=== PATIENT | male | born 1945 | race Caucasian/White ===

== ENCOUNTER → 2017-02-21 | Outpatient (CLI) | payer MEDICARE ==
[~2017-02-21] MED LIST: ACTO30TA7 PO; ALBU8I INH; ISTA0.5S; LEVEMIR SQ; LISI-360 PO; PLAV75TA PO; SIMV20 PO; SYNT25TA PO; TRIA.1%T TOP
== END ==
LOC: CLAB 12:36
PROVIDERS: ATTEND Internal Medicine Endocrinology, Diabetes & Metabolism
DX: E87.5 Hyperkalemia (principal)
CPT/HCPCS: 36415; 84132

== ENCOUNTER → 2017-04-29 | Outpatient (CLI) | payer MEDICARE ==
--- NOTE | 2017-04-30 09:36 | RSPPFT ---
DATE OF PROCEDURE: 04/29/17 COMMENTS: Spirometry shows FVC of 1.9 predicted 3.7, FEV1 of 1.3 predicted 2.4. Post-bronchodilator FVC increases to 2.2. Lung volumes could not be measured. IMPRESSION: On the basis of the above, patient has an obstructive lung defect based on the flow volume loop and some reversible component is noted following acutely inhaled bronchodilator.
== END ==
LOC: HRSP 09:25
PROVIDERS: ATTEND Internal Medicine Pulmonary Disease
DX: J44.9 Chronic obstructive pulmonary disease, unspecified (principal)
CPT/HCPCS: 94060; 94726; 94729

== ENCOUNTER 2018-01-28 20:32 | Inpatient (IN) | payer MEDICARE ==
[~2018-01-28] VITALS: Ht 165.1 cm; Wt 70.0 kg
[~2018-01-28 20:32] MED LIST changes: +IODIXANOL 320 MG/ML 10 ML VIAL (for Rad CT) IVCONTRAST ONE
[2018-01-28 20:42] VITALS: BP 201/80; PULSE 55; RESP 30; TEMP 97.4; O2SAT 95
--- NOTE | 2018-01-28 20:58 | PD ---
HPI Chief Complaint: Chest Pain Time Seen by Provider: 20:47 Travel History International Travel<30 days: No Contact w/Intl Traveler<30days: No Traveled to known affect area: No History of Present Illness HPI 72-year-old male with history of 5 vessel bypass, coronary artery disease, [address], presents for evaluation of abdominal pain, chest pain, nausea and vomiting. He reports that 2 PM today he ate [employer] fast food. 2 hours later he developed abdominal pain, nausea and vomiting. Since then the pain is migrating into his chest. He describes it as a aching pain in his mid chest region which does not radiate. Endorses associated dyspnea. He has persistent nausea as well. Denies cough, congestion, dysuria, flank pain, objective fevers. He has no other complaints at this time. PFSH Past Medical History Arthritis: Yes (SHOULDERS) Asthma: No Blood Disorders: No Heart Rhythm Problems: No Cancer: No Cardiovascular Problems: Yes High Cholesterol: Yes (ON MEDS) Chemotherapy: No Chest Pain: Yes Congestive Heart Failure: No COPD: Yes (RECENTLY) Cerebrovascular Accident: Yes (TIA 10/15/2010) Diabetes: Yes (1990) Diminished Hearing: No Endocrine: Yes Gastrointestinal Disorders: Yes (IBS) GERD: No Genitourinary: No Headaches: No Hepatitis: No Hiatal Hernia: No Hypertension: Yes Immune Disorder: No Implanted Vascular Access Dvce: Yes Musculoskeletal: Yes Neurologic: No Psychiatric: No Reproductive: No Respiratory: Yes Migraines: No Myocardial Infarction: No Radiation Therapy: No Seizures: No Sleep Apnea: Yes Ulcer: No Past Surgical History Abdominal Surgery: No AICD: No Appendectomy: No Arteriovenous Shunt: Yes (STENT ) Cardiac Surgery: Yes (5 VESSEL BIPASS AUG 2007,STENT 2007) Cholecystectomy: No Ear Surgery: No Endocrine Surgery: No Eye Surgery: No Genitourinary Surgery: No Gynecologic Surgery: No Insulin Pump: No Joint Replacement: No Neurologic Surgery: Yes Oral Surgery: No Pacemaker: No Thoracic Surgery: Yes Tonsillectomy: Yes Other Surgery: Yes (RIGHT ELBOW ORIF 1984;FEMORAL BYPASS) Social History Alcohol Use: Yes (QUIT 4 MONTHS AGO) Tobacco Use: No Substance Use: No Allergies-Medications (Allergen,Severity, Reaction): Coded Allergies: No Known Allergies (Verified Adverse Reaction, Unknown, 01/28/18) Reported Meds & Prescriptions Reported Meds & Active Scripts Active Reported Levemir Inj (Insulin Detemir) 1,000 unit/ 10 ML Vial 25 Units SQ HS Do not mix with any other Insulin. Plavix (Clopidogrel Bisulfate) 75 Mg Tab 75 Mg PO DAILY Amlodipine (Amlodipine Besylate) 10 Mg Tab 10 Mg PO DAILY Glimepiride 4 Mg Tab 4 Mg PO BIDAC Simvastatin 40 Mg Tab 40 Mg PO HS Metformin ER (Metformin HCl) 500 Mg Thelma 500 Mg PO DAILY With evening meal Metformin ER (Metformin HCl) 1,000 Mg Thelma 1,000 Mg PO DAILY With evening meal Levothyroxine (Levothyroxine Sodium) 50 Mcg Tab 50 Mcg PO DAILY Review of Systems Except as stated in HPI: all other systems reviewed are Neg Physical Exam Narrative GENERAL: Well-nourished male in no acute distress, hypertensive. SKIN: Warm and dry. HEAD: Atraumatic. Normocephalic. EYES: Pupils equal and round. No scleral icterus. No injection or drainage. ENT: No nasal bleeding or discharge. Mucous membranes pink and moist. NECK: Trachea midline. No JVD. CARDIOVASCULAR: Regular rate and rhythm. No murmur appreciated. RESPIRATORY: No accessory muscle use. Clear to auscultation. Breath sounds equal bilaterally. GASTROINTESTINAL: Abdomen soft, some tenderness noted in the epigastrium without guarding. MUSCULOSKELETAL: No obvious deformities. No clubbing. No cyanosis. No edema. NEUROLOGICAL: Awake and alert. No obvious cranial nerve deficits. Motor grossly within normal limits. Normal speech. PSYCHIATRIC: Appropriate mood and affect; insight and judgment normal. Data Data Last Documented VS Vital Signs Date Time Temp Pulse Resp B/P (MAP) Pulse Ox O2 Delivery O2 Flow Rate FiO2 01/28/18 22:13 20 01/28/18 21:05 Nasal Cannula 2.00 01/28/18 21:05 201/80 (120) 173/71 (105) 01/28/18 20:59 96 01/28/18 20:42 97.4 55 Orders Orders Electrocardiogram (01/28/18 20:48) Ckmb (Isoenzyme) Profile (01/28/18 20:48) Complete Blood Count With Diff (01/28/18 20:48) Comprehensive Metabolic Panel (01/28/18 20:48) Magnesium (Mg) (01/28/18 20:48) Prothrombin Time / Inr (Pt) (01/28/18 20:48) Act Partial Throm Time (Ptt) (01/28/18 20:48) Troponin I (01/28/18 20:48) Chest, Single Ap (01/28/18 20:48) Ecg Monitoring (01/28/18 20:48) Bilateral Bp Monitoring (01/28/18 20:48) Iv Access Insert/Monitor (01/28/18 20:48) Oximetry (01/28/18 20:48) Oxygen Administration (01/28/18 20:48) Sodium Chloride 0.9% Flush (Ns Flush) (01/28/18 21:00) Nitroglycerin Sl (Nitrostat Sl) (01/28/18 21:00) Ondansetron Inj (Zofran Inj) (01/28/18 21:00) Lipase (01/28/18 20:48) Morphine Inj (Morphine Inj) (01/28/18 22:15) Metoclopramide Inj (Reglan Inj) (01/28/18 22:15) Sodium Chlor 0.9% 1000 Ml Inj (Ns 1000 M (01/28/18 22:19) Magnesium Sulfate 1 Gm Premix (Magnesium (01/28/18 22:30) Pantoprazole Inj (Protonix Inj) (01/28/18 22:45) Us Abdomen Gallbladder (01/28/18 ) Labs Laboratory Tests Test 01/28/18 21:00 White Blood Count 11.1 TH/MM3 Red Blood Count 4.77 MIL/MM3 Hemoglobin 13.0 GM/DL Hematocrit 38.6 % Mean Corpuscular Volume 80.9 FL Mean Corpuscular Hemoglobin 27.4 PG Mean Corpuscular Hemoglobin Concent 33.8 % Red Cell Distribution Width 16.5 % Platelet Count 171 TH/MM3 Mean Platelet Volume 9.0 FL Neutrophils (%) (Auto) 92.3 % Lymphocytes (%) (Auto) 4.2 % Monocytes (%) (Auto) 3.0 % Eosinophils (%) (Auto) 0.2 % Basophils (%) (Auto) 0.3 % Neutrophils # (Auto) 10.3 TH/MM3 Lymphocytes # (Auto) 0.5 TH/MM3 Monocytes # (Auto) 0.3 TH/MM3 Eosinophils # (Auto) 0.0 TH/MM3 Basophils # (Auto) 0.0 TH/MM3 CBC Comment DIFF FINAL Differential Comment Prothrombin Time 11.3 SEC Prothromb Time International Ratio 1.1 RATIO Activated Partial Thromboplast Time 21.9 SEC Blood Urea Nitrogen 20 MG/DL Creatinine 1.76 MG/DL Random Glucose 342 MG/DL Total Protein 8.1 GM/DL Albumin 4.1 GM/DL Calcium Level 9.2 MG/DL Magnesium Level 1.1 MG/DL Alkaline Phosphatase 100 U/L Aspartate Amino Transf (AST/SGOT) 171 U/L Alanine Aminotransferase (ALT/SGPT) 74 U/L Total Bilirubin 4.9 MG/DL Sodium Level 134 MEQ/L Potassium Level 4.5 MEQ/L Chloride Level 98 MEQ/L Carbon Dioxide Level 23.0 MEQ/L Anion Gap 13 MEQ/L Estimat Glomerular Filtration Rate 38 ML/MIN Total Creatine Kinase 75 U/L Troponin I LESS THAN 0.02 NG/ML Lipase 105 U/L MDM Medical Decision Making Medical Screen Exam Complete: Yes Emergency Medical Condition: Yes Medical Record Reviewed: Yes Interpretation(s) CONCLUSION: Mild bibasilar patchiness consistent with atelectasis and/or infiltrate. Mild cardiomegaly. CBC reveals a WBC count of 11.1 CMP reveals BUN 20, creatinine 1.76, GFR 38, total glucose 342, magnesium 1.1, bilirubin 4.9, AST 171 Lipase within normal limits. Troponin, CK within normal limits. Differential Diagnosis Gastric enteritis, food poisoning, pancreatitis, peptic ulcer disease, cholecystitis, angina, acute coronary syndrome, aortic dissection, hypertensive emergency Narrative Course The patient was placed on ECG monitor and pulse oximetry. Twelve-lead EKG was obtained revealing sinus rhythm, rate 53, right bundle branch block. The patient was given IV Zofran, sulfa and nitroglycerin with some improvement of his pain but pain remained at 5 out of 10 and therefore IV morphine has been ordered. Lab work, chest x-ray were ordered. The patient's blood pressure improved during his hospital stay. His lab work reveals a magnesium level I.1, IV magnesium as been ordered. He has an elevated bilirubin level of 4.9 as well as an AST of 171, epigastric and right upper quadrant tenderness on palpation, abdominal ultrasound has been ordered. 2300: At the end my shift the patient signed out pending right upper quadrant ultrasound imaging. Juan Pablo Vance Jan 28, 2018 20:58
[2018-01-28] MEDS ORDERED: SODIUM CHLORIDE 0.9% FLUSH 10 ML FLUSH IVF PRN (21:00)
[2018-01-28] MEDS ORDERED: ONDANSETRON HCL 4 MG/2 ML VIAL IV PUSH ONE (21:00)
[2018-01-28 21:05] VITALS: BP_SYST 173; BP_SYST 201; BP_DIAS 71; BP_DIAS 80
[2018-01-28] MEDS: NITROGLYCERIN 0.4 MG SL 25 TABS/BTL SL SCH ×3 (21:10→21:32)
[2018-01-28 21:27] LABS: AUTOMATED NEUTROPHIL # 10.3 TH/MM3 (1.8-7.7); BASOPHIL % 0.3 % (0.0-2.0); EOSINOPHIL % 0.2 % (0.0-4.0); HEMATOCRIT 38.6 % (39.0-51.0); LYMPH % 4.2 % (9.0-44.0); LYMPHOCYTE # 0.5 TH/MM3 (1.0-4.8); MEAN CELL VOLUME 80.9 FL (80.0-100.0); MEAN CORPUSCULAR HEMOGLOBIN 27.4 PG (27.0-34.0); MEAN CORPUSCULAR HGB CONC 33.8 % (32.0-36.0); MONOCYTE # 0.3 TH/MM3 (0-0.9); NEUT % 92.3 % (16.0-70.0); PLATELET COUNT 171 TH/MM3 (150-450); RED BLOOD COUNT 4.77 MIL/MM3 (4.50-5.90); RED CELL DISTRIBUTION WIDTH 16.5 % (11.6-17.2); WHITE BLOOD COUNT 11.1 TH/MM3 (4.0-11.0)
[2018-01-28] MEDS ORDERED: LEVO50TA4 PO (21:30)
[2018-01-28] MEDS ORDERED: GLIM4TAB PO (21:30)
[2018-01-28] MEDS ORDERED: PLAV75TA29 PO (21:30)
[2018-01-28] MEDS ORDERED: SIMV40TA PO (21:30)
[2018-01-28] MEDS ORDERED: METF500T4 PO (21:30)
[2018-01-28] MEDS ORDERED: AMLO10TA2 PO (21:30)
[2018-01-28] MEDS ORDERED: LEVEMIR SQ (21:30)
--- NOTE | 2018-01-28 21:32 | RADRPT ---
EXAM DATE/TIME: 01/28/2018 21:07 [facility] COMPARISON: No previous studies available for comparison. INDICATIONS : Chest pain. MEDICAL HISTORY : None. SURGICAL HISTORY : CABG. ENCOUNTER: Initial ACUITY: 1 day PAIN SCORE: 5/10 LOCATION: Bilateral chest FINDINGS: Mild bibasilar patchiness is noted consistent with atelectasis and/or infiltrate. The heart is mildly prominent. Median sternotomy wires are noted status post cardiac surgery. CONCLUSION: Mild bibasilar patchiness consistent with atelectasis and/or infiltrate. Mild cardiomegaly. Gucci Baldwin MD on January 28, 2018 at 21:30 Board Certified Radiologist. This report was verified electronically.
[2018-01-28 21:40] LABS: INTERNATIONAL NORMALIZED RATIO 1.1 RATIO; PROTHROMBIN TIME - PATIENT 11.3 SEC (9.8-11.6)
[2018-01-28 22:00] VITALS: BP 177/77; PULSE 50; RESP 20; O2SAT 95
[2018-01-28 22:13] LABS: ALBUMIN 4.1 GM/DL (3.4-5.0); ALT (GPT) 74 U/L (12-78); AST (GOT) 171 U/L (15-37); BLOOD UREA NITROGEN 20 MG/DL (7-18); CALCIUM 9.2 MG/DL (8.5-10.1); CHLORIDE 98 MEQ/L (98-107); CREATININE 1.76 MG/DL (0.60-1.30); GLOMERULAR FILTRATION RATE 38 ML/MIN (>89); GLUCOSE,RANDOM 342 MG/DL (74-106); MAGNESIUM 1.1 MG/DL (1.5-2.5); SODIUM (NA) 134 MEQ/L (136-145)
[2018-01-28] MEDS ORDERED: MORPHINE SULFATE 4 MG/ML INJ IV PUSH ONE (22:15)
[2018-01-28] MEDS ORDERED: METOCLOPRAMIDE HCL 10 MG/2 ML VIAL IV PUSH ONE (22:15)
[2018-01-28] MEDS ORDERED: SODIUM CHLOR 0.9% 1000 ML INJ 1,000 ML IV SCH (22:19)
[2018-01-28 22:22] LABS: ALKALINE PHOSPHATASE 100 U/L (45-117); TOTAL BILIRUBIN ADULT 4.9 MG/DL (0.2-1.0); TOTAL PROTEIN 8.1 GM/DL (6.4-8.2); TROPONIN I LESS THAN 0.02 NG/ML (0.02-0.05)
[2018-01-28] MEDS ORDERED: MAGNESIUM SULFATE 1 GM PREMIX 100 ML IV ONE (22:30)
[2018-01-28] MEDS ORDERED: PANTOPRAZOLE SODIUM 40 MG VIAL IV PUSH ONE (22:45)
[2018-01-28 23:00] VITALS: BP 158/72; PULSE 58; RESP 15; O2SAT 97
--- NOTE | 2018-01-28 23:07 | PD ---
Physical Exam Date Seen by Provider: Jan 28, 2018 Time Seen by Provider: 23:10 Janelle Ulrich 4.9 US ordered to rule out acute cholecystitis as the cause of his pain. Bedside US by tech large stone but not obstruction outflow and no wall thickenng or signs of cholecystitis, Pt to be admitted to Dr lazcano and BP elevation needs control > we ordered a CTAorta to rule out Thoracic Aorta dissection= negative for dissection , Data Data Last Documented VS Orders Orders Electrocardiogram (01/28/18 20:48) Ckmb (Isoenzyme) Profile (01/28/18 20:48) Complete Blood Count With Diff (01/28/18 20:48) Comprehensive Metabolic Panel (01/28/18 20:48) Magnesium (Mg) (01/28/18 20:48) Prothrombin Time / Inr (Pt) (01/28/18 20:48) Act Partial Throm Time (Ptt) (01/28/18 20:48) Troponin I (01/28/18 20:48) Chest, Single Ap (01/28/18 20:48) Ecg Monitoring (01/28/18 20:48) Bilateral Bp Monitoring (01/28/18 20:48) Iv Access Insert/Monitor (01/28/18 20:48) Oximetry (01/28/18 20:48) Oxygen Administration (01/28/18 20:48) Sodium Chloride 0.9% Flush (Ns Flush) (01/28/18 21:00) Nitroglycerin Sl (Nitrostat Sl) (01/28/18 21:00) Ondansetron Inj (Zofran Inj) (01/28/18 21:00) Lipase (01/28/18 20:48) Morphine Inj (Morphine Inj) (01/28/18 22:15) Metoclopramide Inj (Reglan Inj) (01/28/18 22:15) Sodium Chlor 0.9% 1000 Ml Inj (Ns 1000 M (01/28/18 22:19) Magnesium Sulfate 1 Gm Premix (Magnesium (01/28/18 22:30) Pantoprazole Inj (Protonix Inj) (01/28/18 22:45) Us Abdomen Gallbladder (01/28/18 ) Cta Thor Abd Aorta W Iv C W3d (01/29/18 ) Iodixanol 320 Inj (Rad Ct) (Visipaque 32 (01/28/18 02:00) Admit Order (Ed Use Only) (01/29/18 04:17) Vital Signs (Adult) CONNIE.Q4H (01/29/18 04:17) Activity Oob Ad Tierra (01/29/18 04:17) Acetaminophen (Tylenol) (01/29/18 04:30) Labs Laboratory Tests Test 01/28/18 21:00 White Blood Count 11.1 TH/MM3 Red Blood Count 4.77 MIL/MM3 Hemoglobin 13.0 GM/DL Hematocrit 38.6 % Mean Corpuscular Volume 80.9 FL Mean Corpuscular Hemoglobin 27.4 PG Mean Corpuscular Hemoglobin Concent 33.8 % Red Cell Distribution Width 16.5 % Platelet Count 171 TH/MM3 Mean Platelet Volume 9.0 FL Neutrophils (%) (Auto) 92.3 % Lymphocytes (%) (Auto) 4.2 % Monocytes (%) (Auto) 3.0 % Eosinophils (%) (Auto) 0.2 % Basophils (%) (Auto) 0.3 % Neutrophils # (Auto) 10.3 TH/MM3 Lymphocytes # (Auto) 0.5 TH/MM3 Monocytes # (Auto) 0.3 TH/MM3 Eosinophils # (Auto) 0.0 TH/MM3 Basophils # (Auto) 0.0 TH/MM3 CBC Comment DIFF FINAL Differential Comment Prothrombin Time 11.3 SEC Prothromb Time International Ratio 1.1 RATIO Activated Partial Thromboplast Time 21.9 SEC Blood Urea Nitrogen 20 MG/DL Creatinine 1.76 MG/DL Random Glucose 342 MG/DL Total Protein 8.1 GM/DL Albumin 4.1 GM/DL Calcium Level 9.2 MG/DL Magnesium Level 1.1 MG/DL Alkaline Phosphatase 100 U/L Aspartate Amino Transf (AST/SGOT) 171 U/L Alanine Aminotransferase (ALT/SGPT) 74 U/L Total Bilirubin 4.9 MG/DL Sodium Level 134 MEQ/L Potassium Level 4.5 MEQ/L Chloride Level 98 MEQ/L Carbon Dioxide Level 23.0 MEQ/L Anion Gap 13 MEQ/L Estimat Glomerular Filtration Rate 38 ML/MIN Total Creatine Kinase 75 U/L Troponin I LESS THAN 0.02 NG/ML Lipase 105 U/L MDM Supervised Visit with ARTEMIO: Yes Differential Diagnosis uncontrolled HTN and Elevated Bilirubin abdo pain NOS and will admit Dr Bravo bedside and admits to [facility] med surg Diagnosis Primary Impression: Hypertension Qualified Codes: I10 - Essential (primary) hypertension Additional Impression: Abdominal pain Jamar Hyde MD Jan 28, 2018 23:07
[2018-01-29] VITALS (9 sets, daily range): BP systolic 132–157; BP diastolic 62–67; PULSE 75–86; RESP 16–21; TEMP 97.1–98.5; O2SAT 90–96
--- NOTE | 2018-01-29 01:01 | RADRPT ---
EXAM DATE/TIME: 01/29/2018 00:06 [facility] COMPARISON: No previous studies available for comparison. INDICATIONS : Right upper quadrant pain. MEDICAL HISTORY : Hypercholesterolemia. Chronic obstructive pulmonary disease. Hypertension. CVA. Arthritis. Diabetes. Sleep apnea. Measles. SURGICAL HISTORY : CABG. Coronary artery stent. AV shunt. ENCOUNTER: Initial ACUITY: 3 days PAIN SCORE: 4/10 LOCATION: Right upper quadrant MEASUREMENTS: LIVER: 14.2 cm length COMMON DUCT: 7 mm RIGHT KIDNEY: 10.0 x 3.9 x 4.2 cm FINDINGS: LIVER: Normal echotexture without focal lesion or ductal dilatation. COMMON DUCT: No intraluminal mass or stone visualized. GALLBLADDER: Small gallstone in the neck. Borderline gallbladder wall thickness. No pericholecystic fluid or sonog raphic Blank sign. PANCREAS: Limited visualization due to body habitus and bowel gas. RIGHT KIDNEY: Small hyperechoic foci may reflect nonobstructing renal calyceal calculi. Right kidney is otherwise u nremarkable. No hydronephrosis. CONCLUSION: 1. Cholelithiasis without definitive sonographic evidence for cholecystitis. 2. Suspect small nonobstructing right renal calyceal calculi. 3. Limited evaluation of the pancreas due to body habitus and overlying bowel gas. Willie Kelly MD on January 29, 2018 at 0:58 Board Certified Radiologist. This report was verified electronically.
--- NOTE | 2018-01-29 03:00 | RADRPT ---
EXAM DATE/TIME: 01/29/2018 01:57 [facility] COMPARISON: No previous studies available for comparison. INDICATIONS : Epigastric pain. IV CONTRAST: 75 cc Visipaque (iodixanol) IV RADIATION DOSE: 6.64 CTDIvol (mGy) MEDICAL HISTORY : Cardiovascular disease. Hypertension. Inflammatory bowel disease. SURGICAL HISTORY : CABG ENCOUNTER: Initial ACUITY: 1 day PAIN SCALE: 3/10 LOCATION: medial chest TECHNIQUE: Volumetric scanning was performed using a multi-row detector CT scanner. The data was post processed with a variety of visualization algorithms including full volume maximum intensity projection, multi -planar sliding thin slab reformation, curved planar reformation, and surface rendering techniques. Using automated exposure control and adjustment of the mA and/or kV according to patient size, radiat ion dose was kept as low as reasonably achievable to obtain optimal diagnostic quality images. DICOM format image data is available electronically for review and comparison. FINDINGS: LUNGS: Mild bibasilar groundglass opacities and slight peripheral fibrosis. Mild linear break opacities ante riorly consistent with scarring/atelectasis. MEDIASTINUM: Subcentimeter mediastinal and right hilar nodes. Prominent coronary artery calcifications. Heart is o therwise unremarkable. Central pulmonary arteries are patent. ABDOMEN: The liver and spleen are free of focal defects. Multiple gallstones. Pancreas is unremarkable. The ad renal glands are normal. The kidneys demonstrate no evidence of solid renal mass or hydronephrosis. N o free fluid or abdominal masses are identified. No para-aortic adenopathy is seen. Mild sigmoid dive rticulosis. Bowel is otherwise unremarkable by CT without obstruction. PELVIS: No evidence of free fluid or pelvic mass. No abnormally enlarged inguinal or retroperitoneal lymph no sacha are present. Small left inguinal hernia containing a small portion of the proximal sigmoid colon which appears unremarkable. The bladder is unremarkable. THORACIC AORTA: Ascending thoracic aorta is normal in caliber without dissection or aneurysm. Standard 3 vessel arch anatomy. Proximal arch vessels are grossly patent. Heart is normal in caliber. Mild atherosclerotic c alcifications of the descending thoracic aorta without aneurysm or dissection. No significant flow-li miting stenosis. ABDOMINAL AORTA: Heavily abdominal aorta. Focal dissection versus ulcerated plaque in the distal infrarenal aorta. Bul ky calcified plaque in the origin of the left renal artery with resultant moderate stenosis. Mild arnel nosis of the right renal artery origin. Mild stenosis of the celiac origin. Mild to moderate stenosis of the SMA origin. EBENEZER is patent. PELVIC VESSELS: Heavily calcified common iliac arteries. Focal dissection versus ulcerated plaque in the distal left common iliac artery at the bifurcation. There is a left external iliac stent just beyond th is which appears patent. Bulky calcified plaque in the external carotid iliac arteries bilateral ly with tandem [id number] stenoses. CONCLUSION: 1. No thoracic aortic aneurysm or dissection. 2. Heavily calcified infrarenal patella aorta with focal dissection versus ulcerated plaque distally. 3. Heavily calcified bilateral iliac arteries with focal dissection versus ulcerated plaque in the di stal left common iliac artery near the bifurcation. Patent left external iliac artery stent with tand em [id number] bilateral external iliac artery stenoses. 4. Mild stenosis of the celiac artery with mild to moderate stenosis of the SMA. EBENEZER is patent. Overa ll, degree of mesenteric artery stenosis is not sufficient for significant mesenteric ischemia. 5. Left inguinal hernia containing a small portion of normal-appearing sigmoid colon. 6. Cholelithiasis. 7. Additional ancillary findings, as above. Willie Kelly MD on January 29, 2018 at 2:46 Board Certified Radiologist. This report was verified electronically.
[2018-01-29] MEDS ORDERED: ACETAMINOPHEN 325 MG TAB PO PRN (04:30)
--- NOTE | 2018-01-29 09:22 | HHI.HP ---
HPI Service [facility] Hospitalists Primary Care Physician Juan David Curtis MD Admission Diagnosis Gallstone CHest Pain Chief Complaint: abdominal pain, N/V and chest pain Travel History International Travel<30 Days: No Contact w/Intl Traveler <30 Da: No Traveled to Known Affected Are: No History of Present Illness This is a 72 year old male patient with a past medical history which includes chronic anemia, chronic renal insufficiency, diabetes type I, gout, high cholesterol, hypertension, inflammatory bowel disease, intermittent thrombocytopenia, CAD past OK with stent placement and CABG x5, cholelithiasis in 2012 and MGUS Lambda only. Patient presented to the ER last night with complaints of abdominal pain, chest pain, nausea and vomiting. He reports that 2 PM yesterday he ate [employer] fast food including fried onion rings. 2 hours later he developed abdominal pain, nausea and vomiting. Since then the pain is migrating into his chest. He describes it as a aching pain in his mid chest region which does not radiate. Endorses associated dyspnea. He has persistent nausea as well. Denies cough, congestion, dysuria, flank pain, objective fevers. Patient revaluated today and reports feeling much better today. Patient no longer having abd pain, chest pain, Nausea or vomiting. Patient had similar episode about one year ago after eating a large fatty/fried food, at that time patient was told he needed his gallbladder removed but the gallbladder surgery was never done because he had an OK requiring stents. Patient endorses abdominal pain and bloating and diarrhea after eating fatty meals for the past year or so. Review of Systems Constitutional: DENIES: Fever, Chills Cardiovascular: COMPLAINS OF: Chest pain Gastrointestinal: COMPLAINS OF: Abdominal pain, Nausea, Vomiting Past Family Social History Past Medical History Chronic anemia Chronic renal insufficiency Diabetes type I Gout High Cholesterol Hypertension Inflammatory Bowel Disease Intermittent thrombocytopenia Heart Attack/OK (Mild OK [facility] in 2016 Cholelithiasis in 2011 MGUS Lambda only (No heavy chain component. Lambda light chain only. 16. M spike 0.2g/dL. Lambda light chain only. . M spike 0.1g/dL. Lambda light chain only. Free light chain. K/L elevated.) in 2011 Past Surgical History Coronary stent Upper endoscopy cardiac cath with stents CABG x 5 Reported Medications Levemir Inj (Insulin Detemir) 1,000 unit/ 10 ML Vial 25 Units SQ HS Do not mix with any other Insulin. Plavix (Clopidogrel Bisulfate) 75 Mg Tab 75 Mg PO DAILY Amlodipine (Amlodipine Besylate) 10 Mg Tab 10 Mg PO DAILY Glimepiride 4 Mg Tab 4 Mg PO BIDAC Simvastatin 40 Mg Tab 40 Mg PO HS Metformin ER (Metformin HCl) 500 Mg Thelma 500 Mg PO DAILY With evening meal Metformin ER (Metformin HCl) 1,000 Mg Thelma 1,000 Mg PO DAILY With evening meal Levothyroxine (Levothyroxine Sodium) 50 Mcg Tab 50 Mcg PO DAILY Allergies: Coded Allergies: No Known Allergies (Verified Allergy, Unknown, 01/29/18) Family History Noncontributory Social History Quit drinking alcohol 4 months ago, denies tobacco use, denies illicit drug use Physical Exam Vital Signs Vital Signs Date Time Temp Pulse Resp B/P (MAP) Pulse Ox O2 Delivery O2 Flow Rate FiO2 01/29/18 07:25 97.7 85 20 147/67 (93) 90 01/29/18 05:54 98.5 84 16 151/62 (91) 95 01/29/18 04:00 78 16 148/64 (92) 96 Room Air 01/29/18 01:00 84 16 143/67 (92) 96 Nasal Cannula 2.00 01/29/18 00:00 82 21 157/65 (95) 96 Nasal Cannula 2.00 01/28/18 23:23 20 01/28/18 23:00 58 15 158/72 (100) 97 Nasal Cannula 2.00 01/28/18 22:13 20 01/28/18 22:00 50 20 177/77 (110) 95 Nasal Cannula 2.00 01/28/18 21:05 Nasal Cannula 2.00 01/28/18 21:05 201/80 (120) 173/71 (105) 01/28/18 20:59 96 Nasal Cannula 2.00 01/28/18 20:42 97.4 55 30 201/80 (120) 95 Physical Exam GENERAL: This is a well-nourished, well-developed patient, in no apparent distress. SKIN: No rashes, ecchymoses or lesions. Cool and dry. HEAD: Atraumatic. Normocephalic. No temporal or scalp tenderness. EYES: Pupils equal round and reactive. Extraocular motions intact. No scleral icterus. No injection or drainage. ENT: Nose without bleeding, purulent drainage or septal hematoma. Throat without erythema, tonsillar hypertrophy or exudate. Uvula midline. Airway patent. NECK: Trachea midline. No JVD or lymphadenopathy. Supple, nontender, no meningeal signs. CARDIOVASCULAR: Regular rate and rhythm without murmurs, gallops, or rubs. RESPIRATORY: Clear to auscultation. Breath sounds equal bilaterally. No wheezes , rales, or rhonchi. GASTROINTESTINAL: Abdomen soft, non-tender, nondistended. No hepato-splenomegaly , or palpable masses. No guarding. MUSCULOSKELETAL: Extremities without clubbing, cyanosis, or edema. No joint tenderness, effusion, or edema noted. No calf tenderness. Negative Homans sign bilaterally. NEUROLOGICAL: Awake and alert. Cranial nerves II through XII intact. Motor and sensory grossly within normal limits. Five out of 5 muscle strength in all muscle groups. Normal speech. Laboratory Laboratory Tests Test 01/28/18 21:00 White Blood Count 11.1 Red Blood Count 4.77 Hemoglobin 13.0 Hematocrit 38.6 Mean Corpuscular Volume 80.9 Mean Corpuscular Hemoglobin 27.4 Mean Corpuscular Hemoglobin Concent 33.8 Red Cell Distribution Width 16.5 Platelet Count 171 Mean Platelet Volume 9.0 Neutrophils (%) (Auto) 92.3 Lymphocytes (%) (Auto) 4.2 Monocytes (%) (Auto) 3.0 Eosinophils (%) (Auto) 0.2 Basophils (%) (Auto) 0.3 Neutrophils # (Auto) 10.3 Lymphocytes # (Auto) 0.5 Monocytes # (Auto) 0.3 Eosinophils # (Auto) 0.0 Basophils # (Auto) 0.0 CBC Comment DIFF FINAL Differential Comment Prothrombin Time 11.3 Prothromb Time International Ratio 1.1 Activated Partial Thromboplast Time 21.9 Blood Urea Nitrogen 20 Creatinine 1.76 Random Glucose 342 Total Protein 8.1 Albumin 4.1 Calcium Level 9.2 Magnesium Level 1.1 Alkaline Phosphatase 100 Aspartate Amino Transf (AST/SGOT) 171 Alanine Aminotransferase (ALT/SGPT) 74 Total Bilirubin 4.9 Sodium Level 134 Potassium Level 4.5 Chloride Level 98 Carbon Dioxide Level 23.0 Anion Gap 13 Estimat Glomerular Filtration Rate 38 Total Creatine Kinase 75 Troponin I LESS THAN 0.02 Lipase 105 Result Diagram: 01/28/18 2100 01/28/18 2100 Imaging Last Impressions Aorta CTA 01/29/18 0000 Signed Impressions: Service Date/Time: January 01:57 - CONCLUSION: 1. No thoracic aortic aneurysm or dissection. 2. Heavily calcified infrarenal patella aorta with focal dissection versus ulcerated plaque distally. 3. Heavily calcified bilateral iliac arteries with focal dissection versus ulcerated plaque in the distal left common iliac artery near the bifurcation. Patent left external iliac artery stent with tandem [id number] bilateral external iliac artery stenoses. 4. Mild stenosis of the celiac artery with mild to moderate stenosis of the SMA. EBENEZER is patent. Overall, degree of mesenteric artery stenosis is not sufficient for significant mesenteric ischemia. 5. Left inguinal hernia containing a small portion of normal-appearing sigmoid colon. 6. Cholelithiasis. 7. Additional ancillary findings, as above. Willie Kelly MD Chest X-Ray 01/28/182047 Signed Impressions: Service Date/Time: Sunday, January 28, 2018 21:07 - CONCLUSION: Mild bibasilar patchiness consistent with atelectasis and/or infiltrate. Mild cardiomegaly. Gucci Baldwin MD Gall Bladder Ultrasound 01/28/18 0000 Signed Impressions: Service Date/Time: January 00:06 - CONCLUSION: 1. Cholelithiasis without definitive sonographic evidence for cholecystitis. 2. Suspect small nonobstructing right renal calyceal calculi. 3. Limited evaluation of the pancreas due to body habitus and overlying bowel gas. Willie Kelly MD Caprini VTE Risk Assessment Caprini VTE Risk Assessment: No/Low Risk (score <= 1) Caprini Risk Assessment Model Point Value = 1 Point Value = 2 Point Value = 3 Point Value = 5 Age 41-60 Minor surgery BMI > 25 kg/m2 Swollen legs Varicose veins or History of unexplained or recurrent spontaneous Oral contraceptives or hormone replacement Sepsis (< 1 month) Serious lung disease, including pneumonia (< 1 month) Abnormal pulmonary function Acute myocardial infarction Congestive heart failure (< 1 month) History of inflammatory bowel disease Medical patient at bed rest Age 61-74 Arthroscopic surgery Major open surgery (> 45 min) Laparoscopic surgery (> 45 min) Malignancy Confined to bed (> 72 hours) Immobilizing plaster cast Central venous access Age >= 75 History of VTE Family history of VTE Factor V Leiden Prothrombin [id number] Lupus anticoagulant Anticardiolipin antibodies Elevated serum homocysteine Heparin-induced thrombocytopenia Other congenital or acquired thrombophilia Stroke (< 1 month) Elective arthroplasty Hip, pelvis, or leg fracture Acute spinal cord injury (< 1 month) Prophylaxis Regimen Total Risk Factor Score Risk Level Prophylaxis Regimen 0-1 Low Early ambulation 2 Moderate Order ONE of the following: *Sequential Compression Device (SCD) *Heparin 5000 units SQ BID 3-4 Higher Order ONE of the following medications: *Heparin 5000 units SQ TID *Enoxaparin/Lovenox 40 mg SQ daily (WT < 150 kg, CrCl > 30 mL/min) *Enoxaparin/Lovenox 30 mg SQ daily (WT < 150 kg, CrCl > 10-29 mL/min) *Enoxaparin/Lovenox 30 mg SQ BID (WT < 150 kg, CrCl > 30 mL/min) AND/OR *Sequential Compression Device (SCD) 5 or more Highest Order ONE of the following medications: *Heparin 5000 units SQ TID (Preferred with Epidurals) *Enoxaparin/Lovenox 40 mg SQ daily (WT < 150 kg, CrCl > 30 mL/min) *Enoxaparin/Lovenox 30 mg SQ daily (WT < 150 kg, CrCl > 10-29 mL/min) *Enoxaparin/Lovenox 30 mg SQ BID (WT < 150 kg, CrCl > 30 mL/min) AND *Sequential Compression Device (SCD) Assessment and Plan Problem List: (1) Abdominal pain ICD Codes: R10.9 - Unspecified abdominal pain Plan: This is a 72 year old male patient with a past medical history which includes chronic anemia, chronic renal insufficiency, diabetes type I, gout, high cholesterol, hypertension, inflammatory bowel disease, intermittent thrombocytopenia, CAD past OK with stent placement and CABG x5 and cholelithiasis in 2012. Patient presented to the ER last night with complaints of abdominal pain, chest pain, nausea and vomiting. He reports that 2 PM yesterday he ate [employer] fast food. 2 hours later he developed abdominal pain, nausea and vomiting. Since then the pain is migrating into his chest. He describes it as a aching pain in his mid chest region which does not radiate. Endorses associated dyspnea. He has persistent nausea as well. Denies cough, congestion, dysuria, flank pain, objective fevers. He has no other complaints at this time. total bilirubin on admission 4.9 AST on admission 171 US gallbladder impression: Cholelithiasis without definitive sonographic evidence for cholecystitis. Suspect small nonobstructing right renal calvceal calculi limited evaluation of pancreas due to body habitus Statin on hold recheck CMP requested patient had abdominal CTA last night, unable to do further contrast scan at this time IV hydration overnight then plan CT abd/pelvis with contras tomorrow recheck CMP in AM (2) Elevated AST (SGOT) ICD Codes: R74.0 - Nonspecific elevation of levels of transaminase and lactic acid dehydrogenase [LDH] Plan: see above (3) Elevated bilirubin ICD Codes: R17 - Unspecified jaundice Plan: see above (4) Hypomagnesemia ICD Codes: E83.42 - Hypomagnesemia Plan: mag 1.1 on admission replaced (5) CAD (coronary artery disease) ICD Codes: I25.10 - Atherosclerotic heart disease of [place] coronary artery without angina pectoris Plan: hold statin due to elevated liver enzymes hold Plavix due to abd pain and possible intervention (6) Diabetes mellitus ICD Codes: E11.9 - Type 2 diabetes mellitus without complications Plan: hold metformin at this resume Levemir 15 units QHS resume glimepiride 4 mg BIDAC accu checks ACHS with SSI coverage (7) Hypothyroidism ICD Codes: E03.9 - Hypothyroidism, unspecified Plan: Continue home Levothyroxine Assessment and Plan Patient examined. Assessment and plan formulated with Gissel Curry PA-C. I agree with the above. Gissel Curry Jan 29, 2018 09:22 Addison Lazcano DO Jan 31, 2018 09:17
[2018-01-29] MEDS ORDERED: GLUCAGON 1 MG/ML VIAL OTHER PRN (09:30)
[2018-01-29] MEDS ORDERED: DEXTROSE 50% IN WATER 50 ML VIAL(D50) IV PUSH PRN (09:30)
[2018-01-29] MEDS: INSULIN ASPART SUPPLEMENTAL SCALE SQ SCH ×4 (10:13→21:00)
[2018-01-29 10:46] LABS: TROPONIN I LESS THAN 0.02 NG/ML (0.02-0.05)
--- NOTE | 2018-01-29 11:08 | EKG ---
Date Performed: 01/28/2018 Time Performed: 20:40:04 PTAGE: 72 years EKG: SINUS BRADYCARDIA RIGHT BUNDLE BRANCH BLOCK LEFT ANTERIOR FASCICULAR BLOCK ABNORMAL ECG Sin ce the prior tracing, there has been no significant change PREVIOUS TRACING : 01/02/2014 10.45 DOCTOR: Fede Coughlin Interpretating Date/Time 01/29/2018 11:06:19
[2018-01-29] MEDS ORDERED: INSULIN ASPART SUPPLEMENTAL SCALE SQ SCH (12:00)
[2018-01-29 12:58] LABS: AUTOMATED NEUTROPHIL # 7.3 TH/MM3 (1.8-7.7); BASOPHIL % 0.3 % (0.0-2.0); EOSINOPHIL % 0.3 % (0.0-4.0); HEMOGLOBIN 12.1 GM/DL (13.0-17.0); LYMPH % 4.5 % (9.0-44.0); LYMPHOCYTE # 0.4 TH/MM3 (1.0-4.8); MEAN CELL VOLUME 82.2 FL (80.0-100.0); MEAN CORPUSCULAR HEMOGLOBIN 27.6 PG (27.0-34.0); MEAN CORPUSCULAR HGB CONC 33.6 % (32.0-36.0); MEAN PLATELET VOLUME 9.1 FL (7.0-11.0); MONO % 6.9 % (0.0-8.0); MONOCYTE # 0.6 TH/MM3 (0-0.9); PLATELET COUNT 155 TH/MM3 (150-450); RED BLOOD COUNT 4.38 MIL/MM3 (4.50-5.90); RED CELL DISTRIBUTION WIDTH 16.6 % (11.6-17.2); WHITE BLOOD COUNT 8.3 TH/MM3 (4.0-11.0)
[2018-01-29 13:24] LABS: ALBUMIN 3.6 GM/DL (3.4-5.0); ALKALINE PHOSPHATASE 116 U/L (45-117); ALT (GPT) 196 U/L (12-78); AST (GOT) 317 U/L (15-37); BICARBONATE 27.3 MEQ/L (21.0-32.0); BLOOD UREA NITROGEN 18 MG/DL (7-18); CALCIUM 8.5 MG/DL (8.5-10.1); CHLORIDE 99 MEQ/L (98-107); GLOMERULAR FILTRATION RATE 42 ML/MIN (>89); GLUCOSE,RANDOM 290 MG/DL (74-106); SODIUM (NA) 133 MEQ/L (136-145); TOTAL BILIRUBIN ADULT 5.4 MG/DL (0.2-1.0); TOTAL PROTEIN 7.4 GM/DL (6.4-8.2)
[2018-01-29] MEDS: GLIMEPIRIDE 4 MG TAB PO SCH ×2 (13:34→17:30)
[2018-01-29] MEDS: SODIUM CHLOR 0.9% 1000 ML INJ 1,000 ML IV SCH (13:35)
[2018-01-29 14:22] LABS: % SATURATION IRON PROFILE 21.8 % (20-50); IRON (FE) 96 MCG/DL (65-175); TOTAL IRON BINDING CAPACITY 441 MCG/DL (250-450)
[2018-01-29 14:25] LABS: FERRITIN 30 NG/ML (26-388)
[2018-01-29 14:33] LABS: HEPATITIS A AB IGM NEGATIVE (NEGATIVE); HEPATITIS B CORE AB IGM NEGATIVE (NEGATIVE); HEPATITIS B SURFACE ANTIGEN NEGATIVE (NEGATIVE); HEPATITIS C AB IgG NEGATIVE (NEGATIVE)
[2018-01-29] MEDS: INSULIN DETEMIR 100 UNITS/ML VIAL SQ SCH (20:49)
[2018-01-30 04:24] VITALS: BP 142/68; PULSE 70; RESP 16; TEMP 97.8; O2SAT 95
[2018-01-30] MEDS: SODIUM CHLOR 0.9% 1000 ML INJ 1,000 ML IV SCH ×3 (05:51→22:05)
[2018-01-30] MEDS: LEVOTHYROXINE SODIUM 50 MCG TAB PO SCH (05:58)
[2018-01-30 08:00] VITALS: BP 130/60; PULSE 72; RESP 18; TEMP 98.3; O2SAT 91
[2018-01-30] MEDS: GLIMEPIRIDE 4 MG TAB PO SCH ×2 (08:21→15:45)
[2018-01-30] MEDS: INSULIN ASPART SUPPLEMENTAL SCALE SQ SCH ×4 (09:01→21:00)
[2018-01-30 10:06] LABS: ALBUMIN 3.4 GM/DL (3.4-5.0); CALCIUM 8.3 MG/DL (8.5-10.1); CHLORIDE 102 MEQ/L (98-107); SODIUM (NA) 138 MEQ/L (136-145)
[2018-01-30 10:07] LABS: AST (GOT) 139 U/L (15-37); BICARBONATE 26.5 MEQ/L (21.0-32.0); BLOOD UREA NITROGEN 13 MG/DL (7-18); CREATININE 1.31 MG/DL (0.60-1.30); GLOMERULAR FILTRATION RATE 53 ML/MIN (>89); GLUCOSE,RANDOM 201 MG/DL (74-106)
[2018-01-30 10:14] LABS: ALKALINE PHOSPHATASE 114 U/L (45-117); ALT (GPT) 155 U/L (12-78); TOTAL PROTEIN 6.7 GM/DL (6.4-8.2)
[2018-01-30 12:00] VITALS: BP 143/63; PULSE 71; RESP 18; TEMP 98.3; O2SAT 97
[2018-01-30 12:40] LABS: ANA SCREEN NEG (NEG)
[2018-01-30 14:17] LABS: SMOOTH MUSCLE TOTAL AUTOABS Negative (Negative)
--- NOTE | 2018-01-30 15:21 | RADRPT ---
EXAM DATE/TIME: 01/30/2018 14:40 [place] COMPARISON: CTA THORACIC ABDOMINAL AORTA W 3D RECON, January 29, 2018, 1:57. INDICATIONS : Cholelithiasis. MEDICAL HISTORY : Chronic obstructive pulmonary disease. Hypercholesterolemia. Hypertension. SURGICAL HISTORY : Coronary artery stent. CABG Tonsillectomy. ENCOUNTER: Initial ACUITY: 1 day PAIN SCORE: 5/10 LOCATION: Abdomen. TECHNIQUE: Multiplanar, multisequence magnetic resonance imaging of the abdomen was performed. High-resolution 3D dataset was utilized to reconstruct maximum-intensity projection (MIP) images. FINDINGS: INTRAHEPATIC BILE DUCTS: Within normal limits. No significant anatomical variant is present. EXTRAHEPATIC BILE DUCTS: The common bile duct measures 4-5 mm No stone or filling defect is identified. GALLBLADDER: Multiple stones are present in the gallbladder neck. Mild gallbladder wall thickening. LIVER: Normal size and signal intensity. No concerning liver lesion is identified on this non-contrast exam. PANCREAS: The main pancreatic duct is normal in size. There is no significant anatomical variant. Signal inte nsity is within normal limits. No mass is visualized on this non-contrast exam. OTHER: The remaining visualized structures demonstrate no acute abnormality on this non-contrast exam. CONCLUSION: Distended gallbladder with multiple stones in the neck. Mild gallbladder wall thickening. Nico Caldwell MD on January 30, 2018 at 15:13 Board Certified Radiologist. This report was verified electronically.
--- NOTE | 2018-01-30 15:36 | PD.CONS ---
HPI History of Present Illness This is a 72 year old with hx DMII, IBD, ME who presented to the ER for upper abd pain, n/v 2 days ago. He attributes this to "bad food." He indicates epigastric location of pain. He had just eaten [employer] sandwich and onion rings. 2 hours later he started vomiting. Report he vomited 2 identical waxy oblong white objects. Denies diarrhea. Denies blood in vomit or stool, weight loss. He cites similar episode year ago eating greasy food at [facility]. He was admitted to a hospital and was told he had gallbladder problem and he needed to have it removed but he had an ME at that time. Last colonoscopy was 2 -[address] Olmedo, he recalls no abnormal findings but does have a distant hx of a polyp. Never had EGD. He takes plavix. (Rosita Orourke) PFSH Past Medical History ME DMII COPD renal insufficiency chronic anemia Past Surgical History CABG stent placement elbow surgery (Rosita Orourke) Coded Allergies: No Known Allergies (Verified Allergy, Unknown, 01/29/18) Family History lung ca - mother heart problems - father Social History occasional etoh but used to be heavier drinker quit smoking 1990 no illicit drug use (Rosita Orourke) Review of Systems Constitutional: DENIES: Fever, Weight loss Endocrine: DENIES: Polydipsia Eyes: DENIES: Blurred vision Ears, nose, mouth, throat: DENIES: Hearing loss Respiratory: DENIES: Cough Cardiovascular: DENIES: Chest pain Gastrointestinal: COMPLAINS OF: Abdominal pain, Constipation, Nausea, Vomiting , DENIES: Black stools, Bloody stools, Diarrhea, Hematemesis Genitourinary: DENIES: Hematuria Integumentary: DENIES: Jaundice Hematologic/lymphatic: DENIES: Bruising Immunologic/allergic: DENIES: Eczema Neurologic: DENIES: Abnormal gait Psychiatric: DENIES: Confusion (Rosita Orourke) GI Exam Vitals I&O Vital Signs Date Time Temp Pulse Resp B/P (MAP) Pulse Ox O2 Delivery O2 Flow Rate FiO2 01/30/18 12:00 98.3 71 18 143/63 (89) 97 01/30/18 08:00 98.3 72 18 130/60 (83) 91 01/30/18 04:24 97.8 70 16 142/68 (92) 95 01/29/18 23:08 97.1 76 16 152/67 (95) 94 01/29/18 19:36 97.9 75 20 156/65 (95) 95 I/O 01/29/18 01/29/18 01/29/18 01/30/18 01/30/18 01/30/18 07:00 15:00 23:00 07:00 15:00 23:00 Intake Total 1600 ml 400 ml Balance 1600 ml 400 ml Intake Oral 500 ml 400 ml IV Total 1100 ml # Voids 1 # Bowel Movements 0 Imaging Last Impressions Aorta CTA 01/29/18 0000 Signed Impressions: Service Date/Time: January 01:57 - CONCLUSION: 1. No thoracic aortic aneurysm or dissection. 2. Heavily calcified infrarenal patella aorta with focal dissection versus ulcerated plaque distally. 3. Heavily calcified bilateral iliac arteries with focal dissection versus ulcerated plaque in the distal left common iliac artery near the bifurcation. Patent left external iliac artery stent with tandem [id number] bilateral external iliac artery stenoses. 4. Mild stenosis of the celiac artery with mild to moderate stenosis of the SMA. EBENEZER is patent. Overall, degree of mesenteric artery stenosis is not sufficient for significant mesenteric ischemia. 5. Left inguinal hernia containing a small portion of normal-appearing sigmoid colon. 6. Cholelithiasis. 7. Additional ancillary findings, as above. Willie Kelly MD Chest X-Ray 01/28/182047 Signed Impressions: Service Date/Time: Sunday, January 28, 2018 21:07 - CONCLUSION: Mild bibasilar patchiness consistent with atelectasis and/or infiltrate. Mild cardiomegaly. Gucci Baldwin MD Gall Bladder Ultrasound 01/28/18 0000 Signed Impressions: Service Date/Time: January 00:06 - CONCLUSION: 1. Cholelithiasis without definitive sonographic evidence for cholecystitis. 2. Suspect small nonobstructing right renal calyceal calculi. 3. Limited evaluation of the pancreas due to body habitus and overlying bowel gas. Willie Kelly MD Laboratory Test 01/30/18 09:01 Blood Urea Nitrogen 13 MG/DL Creatinine 1.31 MG/DL Random Glucose 201 MG/DL Total Protein 6.7 GM/DL Albumin 3.4 GM/DL Calcium Level 8.3 MG/DL Alkaline Phosphatase 114 U/L Aspartate Amino Transf (AST/SGOT) 139 U/L Alanine Aminotransferase (ALT/SGPT) 155 U/L Total Bilirubin 3.0 MG/DL Sodium Level 138 MEQ/L Potassium Level 4.2 MEQ/L Chloride Level 102 MEQ/L Carbon Dioxide Level 26.5 MEQ/L Anion Gap 10 MEQ/L Estimat Glomerular Filtration Rate 53 ML/MIN Physical Examination HEENT: PERRL; normocephalic; atraumatic; no jaundice. CHEST: CTA CARDIAC: RRR ABDOMEN: Soft, mildly distended, nontender; no hepatosplenomegaly; bowel sounds are present in all four quadrants. EXTREMITIES: No clubbing, cyanosis, or edema. SKIN: Normal; no rash; no jaundice. 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 (Rosita Orourke) Assessment and Plan Plan ASSESSMENT - abd pain, n/v, elevated LFTs - could be gallbladder related. LFTs trending down since yesterday. lipase is WNL liver w/u is pending, MRCP is pending, GS consult is pending. PLAN - await liver w/u - await GS eval - await MRCP - monitor labs - BEN - further recs to follow pt seen by myself and Dr Olmedo and this note is on his behalf (Rosita Orourke) Plan Patient was seen and examined, agree with above note, patient presented with chest pain and abdominal pain in the right upper quadrant most likely cholecystitis, MRCP showed distended gallbladder with multiple stones in the neck of the gallbladder, no dilation of the common bile duct or bile duct obstruction, patient will be evaluated by surgery with possible laparoscopic cholecystectomy, we will monitor his liver function test (Katerin Olmedo MD) Rosita Orourke Jan 30, 2018 15:36 Katerin Olmedo MD Jan 30, 2018 18:21
[2018-01-30 15:57] VITALS: BP 159/68; PULSE 74; RESP 18; TEMP 97.8; O2SAT 95
--- NOTE | 2018-01-30 18:32 | HHI.PR ---
Subjective Remarks Pt felling better. Abdominal pain resolved. Pt is tolerating PO intake. Objective Vitals Vital Signs Date Time Temp Pulse Resp B/P (MAP) Pulse Ox O2 Delivery O2 Flow Rate FiO2 01/30/18 15:57 97.8 74 18 159/68 (98) 95 01/30/18 12:00 98.3 71 18 143/63 (89) 97 01/30/18 08:00 98.3 72 18 130/60 (83) 91 01/30/18 04:24 97.8 70 16 142/68 (92) 95 01/29/18 23:08 97.1 76 16 152/67 (95) 94 01/29/18 19:36 97.9 75 20 156/65 (95) 95 Result Diagram: 01/29/18 1208 01/30/18 0901 Imaging Last Impressions Cholangiopancreatography MRI 01/30/18 0000 Signed Impressions: Service Date/Time: Tuesday, January 30, 2018 14:40 - CONCLUSION: Distended gallbladder with multiple stones in the neck. Mild gallbladder wall thickening. Nico Caldwell MD Aorta CTA 01/29/18 0000 Signed Impressions: Service Date/Time: January 01:57 - CONCLUSION: 1. No thoracic aortic aneurysm or dissection. 2. Heavily calcified infrarenal patella aorta with focal dissection versus ulcerated plaque distally. 3. Heavily calcified bilateral iliac arteries with focal dissection versus ulcerated plaque in the distal left common iliac artery near the bifurcation. Patent left external iliac artery stent with tandem [id number] bilateral external iliac artery stenoses. 4. Mild stenosis of the celiac artery with mild to moderate stenosis of the SMA. EBENEZER is patent. Overall, degree of mesenteric artery stenosis is not sufficient for significant mesenteric ischemia. 5. Left inguinal hernia containing a small portion of normal-appearing sigmoid colon. 6. Cholelithiasis. 7. Additional ancillary findings, as above. Willie Kelly MD Chest X-Ray 01/28/182047 Signed Impressions: Service Date/Time: Sunday, January 28, 2018 21:07 - CONCLUSION: Mild bibasilar patchiness consistent with atelectasis and/or infiltrate. Mild cardiomegaly. Gucci Baldwin MD Gall Bladder Ultrasound 01/28/18 0000 Signed Impressions: Service Date/Time: January 00:06 - CONCLUSION: 1. Cholelithiasis without definitive sonographic evidence for cholecystitis. 2. Suspect small nonobstructing right renal calyceal calculi. 3. Limited evaluation of the pancreas due to body habitus and overlying bowel gas. Willie Kelly MD Objective Remarks GENERAL: This is a well-nourished, well-developed patient, in no apparent distress. CARDIOVASCULAR: Regular rate and rhythm without murmurs, gallops, or rubs. RESPIRATORY: Clear to auscultation. Breath sounds equal bilaterally. No wheezes , rales, or rhonchi. GASTROINTESTINAL: Abdomen soft, non-tender, nondistended. Normal active bowel sounds MUSCULOSKELETAL: Extremities without clubbing, cyanosis, or edema. NEURO: Alert & Oriented x4 to person, place, time, situation. Moves all ext x4 A/P Problem List: (1) Abdominal pain ICD Codes: R10.9 - Unspecified abdominal pain Plan: This is a 72 year old male patient with a past medical history which includes chronic anemia, chronic renal insufficiency, diabetes type I, gout, high cholesterol, hypertension, inflammatory bowel disease, intermittent thrombocytopenia, CAD past [place] with stent placement and CABG x5 and cholelithiasis in 2012. Patient presented to the ER last night with complaints of abdominal pain, chest pain, nausea and vomiting. He reports that 2 PM yesterday he ate [employer] fast food. 2 hours later he developed abdominal pain, nausea and vomiting. Since then the pain is migrating into his chest. He describes it as a aching pain in his mid chest region which does not radiate. Endorses associated dyspnea. He has persistent nausea as well. Denies cough, congestion, dysuria, flank pain, objective fevers. He has no other complaints at this time. - Total Bili 4.9 (01/28), 5.4 (01/29), 3.0 (3/3) - Ast 317 (3), 139 (3/3) - Alt 196 (3/1), 155 (3/3) total bilirubin on admission 4.9 AST on admission 171 US gallbladder (01/28) - Cholelithiasis without definitive sonographic evidence for cholecystitis. - Suspect small nonobstructing right renal calvceal calculi limited evaluation of pancreas due to body habitus MRCP (01/30/18) - Distended gallbladder with multiple stones in the neck. Mild gallbladder wall thickening - statin on hold - IV fluids - repeat CMP in AM - Case d/w General Surgery, Dr. Sam, (01/30) - if pt continues to improved, will d/c to home 01/31 - f/u with Dr. Sam next week in the clinic - likely elective laparoscopic cholecystectomy in 1 week (2) Elevated AST (SGOT) ICD Codes: R74.0 - Nonspecific elevation of levels of transaminase and lactic acid dehydrogenase [LDH] Plan: see above (3) Elevated bilirubin ICD Codes: R17 - Unspecified jaundice Plan: see above (4) Hypomagnesemia ICD Codes: E83.42 - Hypomagnesemia Plan: mag 1.1 on admission replaced (5) CAD (coronary artery disease) ICD Codes: I25.10 - Atherosclerotic heart disease of [place] coronary artery without angina pectoris Plan: hold statin due to elevated liver enzymes hold Plavix due to abd pain and possible intervention (6) Diabetes mellitus ICD Codes: E11.9 - Type 2 diabetes mellitus without complications Plan: hold metformin at this resume Levemir 15 units QHS resume glimepiride 4 mg BIDAC accu checks ACHS with SSI coverage (7) Hypothyroidism ICD Codes: E03.9 - Hypothyroidism, unspecified Plan: Continue home Levothyroxine Addison Lazcano DO Jan 30, 2018 18:32
[2018-01-30 20:19] VITALS: BP 147/67; PULSE 66; RESP 17; TEMP 98.1; O2SAT 95
[2018-01-30] MEDS: INSULIN DETEMIR 100 UNITS/ML VIAL SQ SCH (22:40)
[2018-01-30 23:56] VITALS: BP 142/68; PULSE 68; RESP 17; TEMP 98.1; O2SAT 95
[2018-01-31 05:45] VITALS: BP 144/70; PULSE 68; RESP 18; TEMP 98.2; O2SAT 96
[2018-01-31] MEDS: LEVOTHYROXINE SODIUM 50 MCG TAB PO SCH (06:43)
[2018-01-31 07:19] VITALS: BP 196/79; PULSE 64; RESP 16; TEMP 98; O2SAT 97
[2018-01-31] MEDS: INSULIN ASPART SUPPLEMENTAL SCALE SQ SCH ×2 (08:29→13:21)
[2018-01-31 08:46] VITALS: BP 159/63; PULSE 65; RESP 16; O2SAT 95
--- NOTE | 2018-01-31 08:54 | HHI.GIFU ---
Subjective Remarks Pt said this was a problem with drawing this morning's labs. He is comfortable , denies abd pain or n/v. (Rosita Orourke) Objective Vitals I&O Vital Signs Date Time Temp Pulse Resp B/P (MAP) Pulse Ox O2 Delivery O2 Flow Rate FiO2 01/31/18 08:46 65 16 159/63 (95) 95 01/31/18 07:19 98.0 64 16 196/79 (118) 97 01/31/18 05:45 98.2 68 18 144/70 (94) 96 01/30/18 23:56 98.1 68 17 142/68 (92) 95 01/30/18 20:19 98.1 66 17 147/67 (93) 95 01/30/18 15:57 97.8 74 18 159/68 (98) 95 01/30/18 12:00 98.3 71 18 143/63 (89) 97 I/O 01/30/18 01/30/18 01/30/18 01/31/18 01/31/18 01/31/18 07:00 15:00 23:00 07:00 15:00 23:00 Intake Total 1400 ml Balance 1400 ml Intake Oral 1400 ml # Voids 4 Laboratory Laboratory Tests Test 01/30/18 09:01 Blood Urea Nitrogen 13 Creatinine 1.31 Random Glucose 201 Total Protein 6.7 Albumin 3.4 Calcium Level 8.3 Alkaline Phosphatase 114 Aspartate Amino Transf (AST/SGOT) 139 Alanine Aminotransferase (ALT/SGPT) 155 Total Bilirubin 3.0 Sodium Level 138 Potassium Level 4.2 Chloride Level 102 Carbon Dioxide Level 26.5 Anion Gap 10 Estimat Glomerular Filtration Rate 53 Imaging Last Impressions Cholangiopancreatography MRI 01/30/18 0000 Signed Impressions: Service Date/Time: Tuesday, January 30, 2018 14:40 - CONCLUSION: Distended gallbladder with multiple stones in the neck. Mild gallbladder wall thickening. Nico Caldwell MD Aorta CTA 01/29/18 0000 Signed Impressions: Service Date/Time: January 01:57 - CONCLUSION: 1. No thoracic aortic aneurysm or dissection. 2. Heavily calcified infrarenal patella aorta with focal dissection versus ulcerated plaque distally. 3. Heavily calcified bilateral iliac arteries with focal dissection versus ulcerated plaque in the distal left common iliac artery near the bifurcation. Patent left external iliac artery stent with tandem [id number] bilateral external iliac artery stenoses. 4. Mild stenosis of the celiac artery with mild to moderate stenosis of the SMA. EBENEZER is patent. Overall, degree of mesenteric artery stenosis is not sufficient for significant mesenteric ischemia. 5. Left inguinal hernia containing a small portion of normal-appearing sigmoid colon. 6. Cholelithiasis. 7. Additional ancillary findings, as above. Willie Kelly MD Chest X-Ray 01/28/182047 Signed Impressions: Service Date/Time: Sunday, January 28, 2018 21:07 - CONCLUSION: Mild bibasilar patchiness consistent with atelectasis and/or infiltrate. Mild cardiomegaly. Gucci Baldwin MD Gall Bladder Ultrasound 01/28/18 0000 Signed Impressions: Service Date/Time: January 00:06 - CONCLUSION: 1. Cholelithiasis without definitive sonographic evidence for cholecystitis. 2. Suspect small nonobstructing right renal calyceal calculi. 3. Limited evaluation of the pancreas due to body habitus and overlying bowel gas. Willie Kelly MD Physical Exam HEENT: PERRL; normocephalic; atraumatic; no jaundice. CHEST: diminished CARDIAC: RRR ABDOMEN: Soft, nondistended, nontender; no hepatosplenomegaly; bowel sounds are present in all four quadrants. EXTREMITIES: No clubbing, cyanosis, or edema. SKIN: Normal; no rash; no jaundice. CRM MARKETING ANALYST: No focal deficits; alert and oriented times three. (Rsoita Orourke) Assessment and Plan Plan ASSESSMENT - abd pain, n/v, elevated LFTs - could be gallbladder related. LFTs trending down since yesterday. lipase is WNL liver w/u is pending, MRCP is pending, GS consult is pending. 01/31/18 no labs drawn today. pt denies pain. GS eval is pending. MRCP as above. hep panel negative, liver w/u so far negative PLAN - await rest of liver w/u - await GS eval - monitor labs - BEN pt seen by myself and Dr Corea and this note is on his behalf (Rosita Orourke) Physician Comments Seen and examined with SIGNAL FITTER, feeling better. MRCP/ U/S reviewed. May have passed a stone. Surgical consult awaited. LFTs improving. ? HIDA scan. If discharged needs fu with gi next week with repeat labs. (Alphonse Corea MD) Rosita Orourke Jan 31, 2018 08:54 Alphonse Corea MD Jan 31, 2018 13:05
[2018-01-31] MEDS: GLIMEPIRIDE 4 MG TAB PO SCH ×2 (10:38→16:00)
[2018-01-31 11:03] VITALS: BP 161/71; PULSE 68; RESP 16; TEMP 97.8; O2SAT 95
[2018-01-31 11:43] LABS: ALBUMIN 3.6 GM/DL (3.4-5.0); ALT (GPT) 121 U/L (12-78); AST (GOT) 76 U/L (15-37); BICARBONATE 25.6 MEQ/L (21.0-32.0); BLOOD UREA NITROGEN 11 MG/DL (7-18); CALCIUM 8.7 MG/DL (8.5-10.1); CHLORIDE 102 MEQ/L (98-107); CREATININE 1.39 MG/DL (0.60-1.30); GLOMERULAR FILTRATION RATE 50 ML/MIN (>89); GLUCOSE,RANDOM 298 MG/DL (74-106); SODIUM (NA) 135 MEQ/L (136-145)
[2018-01-31 11:44] LABS: ALKALINE PHOSPHATASE 119 U/L (45-117); TOTAL BILIRUBIN ADULT 2.2 MG/DL (0.2-1.0); TOTAL PROTEIN 7.5 GM/DL (6.4-8.2)
[2018-01-31] MEDS: SODIUM CHLOR 0.9% 1000 ML INJ 1,000 ML IV SCH (11:59)
--- NOTE | 2018-01-31 13:01 | HHI.DS ---
Discharge Summary Admission Date Jan 29, 2018 at 11:52 Discharge Date: Jan 31, 2018 Admitting Diagnosis Gallstone CHest Pain (1) Cholelithiasis Diagnosis: Principal ICD Codes: K80.20 - Calculus of gallbladder without cholecystitis without obstruction (2) Abdominal pain Diagnosis: Principal ICD Codes: R10.9 - Unspecified abdominal pain (3) Elevated AST (SGOT) Diagnosis: Principal ICD Codes: R74.0 - Nonspecific elevation of levels of transaminase and lactic acid dehydrogenase [LDH] (4) Elevated bilirubin Diagnosis: Principal ICD Codes: R17 - Unspecified jaundice (5) Hypomagnesemia Diagnosis: Principal ICD Codes: E83.42 - Hypomagnesemia (6) CAD (coronary artery disease) Diagnosis: Secondary ICD Codes: I25.10 - Atherosclerotic heart disease of [place] coronary artery without angina pectoris (7) Diabetes mellitus Diagnosis: Secondary ICD Codes: E11.9 - Type 2 diabetes mellitus without complications (8) Hypothyroidism Diagnosis: Secondary ICD Codes: E03.9 - Hypothyroidism, unspecified Consultants Dr. Katerin Olmedo, Gastroenterology Brief History This is a 72 year old male patient with a past medical history which includes chronic anemia, chronic renal insufficiency, diabetes type I, gout, high cholesterol, hypertension, inflammatory bowel disease, intermittent thrombocytopenia, CAD past CA with stent placement and CABG x5, cholelithiasis in 2012 and MGUS Lambda only. Patient presented to the ER last night with complaints of abdominal pain, chest pain, nausea and vomiting. He reports that 2 PM yesterday he ate [employer] fast food including fried onion rings. 2 hours later he developed abdominal pain, nausea and vomiting. Since then the pain is migrating into his chest. He describes it as a aching pain in his mid chest region which does not radiate. Endorses associated dyspnea. He has persistent nausea as well. Denies cough, congestion, dysuria, flank pain, objective fevers. Patient revaluated today and reports feeling much better today. Patient no longer having abd pain, chest pain, Nausea or vomiting. Patient had similar episode about one year ago after eating a large fatty/fried food, at that time patient was told he needed his gallbladder removed but the gallbladder surgery was never done because he had an CA requiring stents. Patient endorses abdominal pain and bloating and diarrhea after eating fatty meals for the past year or so. CBC/BMP: 01/29/18 1208 01/31/18 1101 Significant Findings Laboratory Tests Test 01/28/18 21:00 01/29/18 10:01 01/29/18 12:08 01/29/18 14:10 White Blood Count 11.1 TH/MM3 (4.0-11.0) Hematocrit 38.6 % (39.0-51.0) 36.0 % (39.0-51.0) Neutrophils (%) (Auto) 92.3 % (16.0-70.0) 88.0 % (16.0-70.0) Lymphocytes (%) (Auto) 4.2 % (9.0-44.0) 4.5 % (9.0-44.0) Neutrophils # (Auto) 10.3 TH/MM3 (1.8-7.7) Lymphocytes # (Auto) 0.5 TH/MM3 (1.0-4.8) 0.4 TH/MM3 (1.0-4.8) Activated Partial Thromboplast Time 21.9 SEC (24.3-30.1) Blood Urea Nitrogen 20 MG/DL (7-18) Creatinine 1.76 MG/DL (0.60-1.30) 1.60 MG/DL (0.60-1.30) Random Glucose 342 MG/DL (74-106) 290 MG/DL (74-106) Magnesium Level 1.1 MG/DL (1.5-2.5) Aspartate Amino Transf (AST/SGOT) 171 U/L (15-37) 317 U/L (15-37) Total Bilirubin 4.9 MG/DL (0.2-1.0) 5.4 MG/DL (0.2-1.0) Sodium Level 134 MEQ/L (136-145) 133 MEQ/L (136-145) Estimat Glomerular Filtration Rate 38 ML/MIN (>89) 42 ML/MIN (>89) Troponin I LESS THAN 0.02 NG/ML LESS THAN 0.02 NG/ML Total Creatine Kinase 29 U/L (39-308) Red Blood Count 4.38 MIL/MM3 (4.50-5.90) Hemoglobin 12.1 GM/DL (13.0-17.0) Alanine Aminotransferase (ALT/SGPT) 196 U/L (12-78) Test 3/2/18 09:01 01/31/18 11:01 Creatinine 1.31 MG/DL (0.60-1.30) 1.39 MG/DL (0.60-1.30) Random Glucose 201 MG/DL (74-106) 298 MG/DL (74-106) Calcium Level 8.3 MG/DL (8.5-10.1) Aspartate Amino Transf (AST/SGOT) 139 U/L (15-37) 76 U/L (15-37) Alanine Aminotransferase (ALT/SGPT) 155 U/L (12-78) 121 U/L (12-78) Total Bilirubin 3.0 MG/DL (0.2-1.0) 2.2 MG/DL (0.2-1.0) Estimat Glomerular Filtration Rate 53 ML/MIN (>89) 50 ML/MIN (>89) Alkaline Phosphatase 119 U/L (45-117) Sodium Level 135 MEQ/L (136-145) Magnesium Level 1.4 MG/DL (1.5-2.5) PE at Discharge GENERAL: This is a well-nourished, well-developed patient, in no apparent distress. CARDIOVASCULAR: Regular rate and rhythm without murmurs, gallops, or rubs. RESPIRATORY: Clear to auscultation. Breath sounds equal bilaterally. No wheezes , rales, or rhonchi. GASTROINTESTINAL: Abdomen soft, non-tender, nondistended. Normal active bowel sounds MUSCULOSKELETAL: Extremities without clubbing, cyanosis, or edema. NEURO: Alert & Oriented x4 to person, place, time, situation. Moves all ext x4 Hospital Course (1) Abdominal pain ICD Codes: R10.9 - Unspecified abdominal pain Plan: This is a 72 year old male patient with a past medical history which includes chronic anemia, chronic renal insufficiency, diabetes type I, gout, high cholesterol, hypertension, inflammatory bowel disease, intermittent thrombocytopenia, CAD past CA with stent placement and CABG x5 and cholelithiasis in 2012. Patient presented to the ER last night with complaints of abdominal pain, chest pain, nausea and vomiting. He reports that 2 PM yesterday he ate [employer] fast food. 2 hours later he developed abdominal pain, nausea and vomiting. Since then the pain is migrating into his chest. He describes it as a aching pain in his mid chest region which does not radiate. Endorses associated dyspnea. He has persistent nausea as well. Denies cough, congestion, dysuria, flank pain, objective fevers. He has no other complaints at this time. - Total Bili 4.9 (01/28), 5.4 (01/29), 3.0 (01/30), 2.2 (01/31) - Ast 317 (01/29), 139 (01/30), 76 (01/31) - Alt 196 (01/29), 155 (01/30), 121 (01/31) total bilirubin on admission 4.9 AST on admission 171 US gallbladder (01/28) - Cholelithiasis without definitive sonographic evidence for cholecystitis. - Suspect small nonobstructing right renal calvceal calculi limited evaluation of pancreas due to body habitus MRCP (01/30/18) - Distended gallbladder with multiple stones in the neck. Mild gallbladder wall thickening - Case d/w General Surgery, Dr. Sam, (01/30) - if pt continues to improved, will d/c to home 01/31 - f/u with Dr. Sam next week in the clinic - likely elective laparoscopic cholecystectomy in 1 week 01/31/18 - Pt remains abdominal pain free - pt denies N/V - pt is tolerating PO intake - discharge to home today - low fat diet - f/u with Dr. Sam in 4-5 days (2) Elevated AST (SGOT) ICD Codes: R74.0 - Nonspecific elevation of levels of transaminase and lactic acid dehydrogenase [LDH] Plan: see above (3) Elevated bilirubin ICD Codes: R17 - Unspecified jaundice Plan: see above (4) Hypomagnesemia ICD Codes: E83.42 - Hypomagnesemia Plan: mag 1.1 on admission - 2g IV mag prior to discharge (5) CAD (coronary artery disease) ICD Codes: I25.10 - Atherosclerotic heart disease of [place] coronary artery without angina pectoris Plan: hold statin due to elevated liver enzymes - hold plavix upon discharge for likely upcoming cholecystectomy (6) Diabetes mellitus ICD Codes: E11.9 - Type 2 diabetes mellitus without complications Plan: hold metformin at this resume Levemir 15 units QHS resume glimepiride 4 mg BIDAC accu checks ACHS with SSI coverage (7) Hypothyroidism ICD Codes: E03.9 - Hypothyroidism, unspecified Plan: Continue home Levothyroxine Pt Condition on Discharge: Stable Discharge Disposition: Discharge Home Discharge Instructions DIET: Follow Instructions for: Heart Healthy Diet, Diabetic Diet, Low Fat Diet Activities you can perform: Regular-No Restrictions Activities to Avoid: Strenuous Activity Follow up Referrals: Surgical - 3-5 Days with Kenny Sam MD Continued Medications: Amlodipine (Amlodipine) 10 Mg Tab 10 MG PO DAILY for Blood Pressure Management, #30 TAB 0 Refills Glimepiride (Glimepiride) 4 Mg Tab 4 MG PO BIDAC for Blood Sugar Management, #60 TAB 0 Refills Insulin Detemir Inj (Levemir Inj) 1,000 unit/ 10 ML Vial 25 UNITS SQ HS for Blood Sugar Management, VIAL 0 Refills Do not mix with any other Insulin. Levothyroxine (Levothyroxine) 50 Mcg Tab 50 MCG PO DAILY for Thyroid, #30 TAB 0 Refills Metformin ER (Metformin ER) 1,000 Mg Thelma 1000 MG PO DAILY for Blood Sugar Management, #30 TAB 0 Refills With evening meal MAY RESUME 02/02/18 Metformin ER (Metformin ER) 500 Mg Thelma 500 MG PO DAILY for Blood Sugar Management, TAB 0 Refills With evening meal MAY RESUME 02/02/18 Discontinued Medications: Clopidogrel (Plavix) 75 Mg Tab 75 MG PO DAILY for Blood Clot Prevention, #30 TAB 0 Refills Simvastatin (Simvastatin) 40 Mg Tab 40 MG PO HS for Cholesterol Management, #30 TAB 0 Refills Addison Lazcano DO Jan 31, 2018 13:01
--- NOTE | 2018-01-31 13:11 | HHI.DCPOC ---
Discharge Care Plan Diagnosis: (1) Cholelithiasis (2) Elevated AST (SGOT) (3) Elevated bilirubin (4) Abdominal pain (5) Hypothyroidism (6) CAD (coronary artery disease) (7) Diabetes mellitus (8) Hypomagnesemia (9) Hyperlipidemia Goals to Promote Your Health * To prevent worsening of your condition and complications * To maintain your health at the optimal level Directions to Meet Your Goals Take your medications as prescribed Follow your dietary instruction Follow activity as directed Keep your appointments as scheduled Take your immunizations and boosters as scheduled If your symptoms worsen call your PCP, if no PCP go to Urgent Care Center or Emergency Room Smoking is Dangerous to Your Health. Avoid second hand smoke Call the 24-hour hour crisis hotline for domestic abuse at Addison Lazcano DO Jan 31, 2018 13:11
[2018-01-31] MEDS: MAGNESIUM SULFATE 1 GM PREMIX 100 ML IV SCH ×2 (13:22→14:44)
[2018-01-31 15:26] VITALS: BP 163/68; PULSE 68; RESP 20; TEMP 97.6; O2SAT 94
[2018-01-31] MEDS ORDERED: METF-382 PO (21:30)
[2018-02-02 16:30] LABS: ALPHA-1-ANTITRYPSIN 124 mg/dL (100 - 190)
[2018-02-03 07:52] LABS: MITOCHONDRIAL ABS LESS THAN 20.0 U (<=20.0)
== END 2018-01-31 18:26 | disposition home or self-care (01) | DRG 446 ==
LOC: NEPE 20:32 → NEDA 01-29 04:20 → NEPFCDU 01-29 05:03 → OBSVTOIN 01-29 11:52
PROVIDERS: ADMIT Hospitalist; ATTEND Hospitalist
DX: K80.20 Calculus of gallbladder without cholecystitis without obstruction (principal); E10.22 Type 1 diabetes mellitus with diabetic chronic kidney disease; J44.9 Chronic obstructive pulmonary disease, unspecified; N18.9 Chronic kidney disease, unspecified; I12.9 Hypertensive chronic kidney disease with stage 1 through stage 4 chronic kidney disease, or unspecified chronic kidney disease; E83.42 Hypomagnesemia; I25.10 Atherosclerotic heart disease of native coronary artery without angina pectoris; E03.9 Hypothyroidism, unspecified; K58.0 Irritable bowel syndrome with diarrhea; D64.9 Anemia, unspecified; E78.00 Pure hypercholesterolemia, unspecified; G47.30 Sleep apnea, unspecified; I45.10 Unspecified right bundle-branch block; M10.9 Gout, unspecified; M19.90 Unspecified osteoarthritis, unspecified site; Z79.4 Long term (current) use of insulin; I25.2 Old myocardial infarction; Z95.1 Presence of aortocoronary bypass graft; Z87.891 Personal history of nicotine dependence; Z95.5 Presence of coronary angioplasty implant and graft; Z86.73 Personal history of transient ischemic attack (TIA), and cerebral infarction without residual deficits
CPT/HCPCS: 71045; 71275; 74174; 74181; 76377; 76705; 80053; 80074; 82103; 82104; 82105; 82390; 82550; 82728; 82948; 83520; 83540; 83550; 83690; 83735; 84484; 85025; 85610; 85730; 86038; 86255; 93005; 96365; 96366; 96375; C9113; J1815; J2270; J2405; J2765; J3475; J7030; Q9967

== ENCOUNTER → 2018-02-20 | Day surgery (SDC) | payer MEDICARE ==
[~2018-02-20] VITALS: Ht 165.1 cm; Wt 68.0 kg
[~2018-02-20] MED LIST changes: +ACETAMINOPHEN 1000 MG/100 ML 100 ML IV SCH; -ACTO30TA7 PO; -ALBU8I INH; +AMLO10TA2 PO; +ASPI-183 PO; +BUPIVACAINE/EPINEPHRINE 0.25% 50 ML VIAL ONE; +CHLORHEXIDINE GLUCONATE 2 % 1 PACK (2 CLOTHS) TOPICAL PRN; +CLOP75TA PO; +COLA100C5 PO; +CYAN1KIT2 IM; +DEXAMETHASONE SOD PHOS 4 MG/ML VIAL IV ONE; +GLIM4TAB PO; +GLYCOPYRROLATE 1 MG/5 ML SYRINGE IV PUSH ONE; -IODIXANOL 320 MG/ML 10 ML VIAL (for Rad CT) IVCONTRAST ONE; -ISTA0.5S; +KETOROLAC TROMETHAMINE 30 MG/ML (IVP) VIAL ONE; +LACTATED RINGER'S 1000 ML IV PRN; +LEVO50TA4 PO; +LIDOCAINE HCL 1% PF 5 ML SYRINGE OTHER ONE; -LISI-360 PO; +METF-382 PO; +METF500T4 PO; +METOPROLOL TARTRATE 25 MG TAB PO PRN; +NEOSTIGMINE 5 MG/5 ML SYRINGE IV PUSH ONE; +NORC5TAB PO; +ONDANSETRON HCL 4 MG/2 ML VIAL IV PUSH ONE; -PLAV75TA PO; +POVIDONE IODINE 5% (ANTISEPSIS KIT) 4 APPLICATIONS EACH NARE PRN; +PROPOFOL 200 MG/20 ML AMP IV ONE; +ROCURONIUM INJ 50 MG/5 ML SYRINGE IV PUSH ONE; -SIMV20 PO; +SIMV40TA PO; +SODIUM CHLORID 0.9% 500 ML IV PRN; -SYNT25TA PO; +TIMO0.5S30 EACH EYE; -TRIA.1%T TOP; +VIAG100T PO; +ceFAZolin 2 GM PREMIX 50 ML IV SCH; +ePHEDrine/NS 25 MG/5 ML SYRINGE IV ONE; +fentaNYL CITRATE 250 MCG/5 ML AMP ONE
--- NOTE | 2018-02-20 10:07 | MP ---
cc: Kenny Sam MD DATE OF OPERATION: 02/20/2018 PREOPERATIVE DIAGNOSIS: Chronic cholecystitis and cholelithiasis. POSTOPERATIVE DIAGNOSIS: Chronic cholecystitis and cholelithiasis. PROCEDURE PERFORMED: Laparoscopic cholecystectomy. SURGEON: Kenny Sam MD ANESTHESIA: General endotracheal. OPERATIVE FINDINGS: The patient was found to have a chronically diseased-appearing gallbladder which was moderately thick walled. The cystic duct was seen to be of normal caliber. The liver appeared to be somewhat nodular, but no other abnormalities were noted. OPERATIVE PROCEDURE: The patient was brought to the operating room and after satisfactory general endotracheal anesthesia was obtained, the abdomen was prepped and draped in the usual sterile fashion. 0.25% Marcaine with epinephrine was used to infiltrate the skin for local anesthesia. A small incision was made just above the umbilicus and a 5 mm trocar was inserted into the peritoneal cavity under direct visualization. The abdomen was distended to 15 mmHg using carbon dioxide after which, the camera was reinserted and visceral injury inspected for, with none being identified. Under direct visualization, a 5 port and a 12 port were placed in the upper abdomen. The gallbladder was grasped and retracted superiorly over the right lobe of the liver, after which, Jani's pouch was grasped and retracted inferiorly and laterally, placing tension on the hepatoduodenal ligament. The cystic artery and cystic duct were dissected free bluntly to obtain the critical view. Once the critical view had been obtained, the cystic duct and artery with both dissected near their junction with the Harmonic scalpel. The Harmonic scalpel was also used to dissect the gallbladder free from the liver bed. It was then placed within an Endo Catch bag and brought through the upper midline incision where it was emptied of its bile and withdrawn without problem. The camera was reinserted and there was a slight amount of oozing from the liver bed with no active bleeding. The cystic duct and cystic artery stumps were both carefully inspected and found to be intact with no leakage of bile or blood. A small amount of Surgicel powder was placed in the liver bed and hemostasis was again checked for and found to be satisfactory. The carbon dioxide was then vented as completely as possible to the atmospheres. The ports were removed and the fascia at the 12 mm defect was closed with interrupted 0 Vicryl suture. Skin closed with interrupted 4-0 PDS subcuticular stitch. Steri-Strips were applied. The patient was then awakened and taken from the operating room, in satisfactory condition, having tolerated the procedure without problem. MD ASHLEY Mortensen/ADRIAN , 09:30 AM , 10:05 AM
[2018-02-20 10:20] VITALS: TEMP 98
[2018-02-20 10:53] VITALS: BP 138/56; PULSE 50; RESP 16; O2SAT 92
== END | disposition home or self-care (01) ==
LOC: PHSDC 06:15
PROVIDERS: ATTEND Surgery
DX: K80.10 Calculus of gallbladder with chronic cholecystitis without obstruction (principal); E11.9 Type 2 diabetes mellitus without complications; Z79.4 Long term (current) use of insulin
CPT/HCPCS: 00790; 47562; 82948; 88304; J0131; J0690; J1100; J1885; J2405; J2710; J3010; J7120

== ENCOUNTER 2018-02-23 19:19 | Emergency (ER) | payer MEDICARE ==
[~2018-02-23 19:19] MED LIST changes: -ACETAMINOPHEN 1000 MG/100 ML 100 ML IV SCH; -BUPIVACAINE/EPINEPHRINE 0.25% 50 ML VIAL ONE; -CHLORHEXIDINE GLUCONATE 2 % 1 PACK (2 CLOTHS) TOPICAL PRN; -COLA100C5 PO; -DEXAMETHASONE SOD PHOS 4 MG/ML VIAL IV ONE; -GLYCOPYRROLATE 1 MG/5 ML SYRINGE IV PUSH ONE; -KETOROLAC TROMETHAMINE 30 MG/ML (IVP) VIAL ONE; -LACTATED RINGER'S 1000 ML IV PRN; -LIDOCAINE HCL 1% PF 5 ML SYRINGE OTHER ONE; -METOPROLOL TARTRATE 25 MG TAB PO PRN; -NEOSTIGMINE 5 MG/5 ML SYRINGE IV PUSH ONE; -NORC5TAB PO; -ONDANSETRON HCL 4 MG/2 ML VIAL IV PUSH ONE; -POVIDONE IODINE 5% (ANTISEPSIS KIT) 4 APPLICATIONS EACH NARE PRN; -PROPOFOL 200 MG/20 ML AMP IV ONE; -ROCURONIUM INJ 50 MG/5 ML SYRINGE IV PUSH ONE; -SODIUM CHLORID 0.9% 500 ML IV PRN; -ceFAZolin 2 GM PREMIX 50 ML IV SCH; -ePHEDrine/NS 25 MG/5 ML SYRINGE IV ONE; -fentaNYL CITRATE 250 MCG/5 ML AMP ONE
[2018-02-23 19:23] VITALS: BP 160/73; PULSE 85; RESP 19; TEMP 96.6; O2SAT 91
[2018-02-23] MEDS ORDERED: MORPHINE SULFATE 4 MG/ML INJ IV PUSH ONE (20:15)
[2018-02-23] MEDS ORDERED: SODIUM CHLORIDE 0.9% FLUSH 10 ML FLUSH IV FLUSH PRN (20:15)
[2018-02-23] MEDS ORDERED: ONDANSETRON HCL 4 MG/2 ML VIAL IVP ONE (20:15)
[2018-02-23] MEDS ORDERED: SODIUM CHLOR 0.9% 1000 ML INJ 1,000 ML IV SCH (20:15)
[2018-02-23 20:21] VITALS: BP 160/67; PULSE 88; RESP 21; TEMP 97.3; O2SAT 91
--- NOTE | 2018-02-23 20:28 | PD ---
HPI Chief Complaint: Abdominal Pain Time Seen by Provider: 20:06 Travel History International Travel<30 days: No Contact w/Intl Traveler<30days: No Traveled to known affect area: No History of Present Illness HPI The patient is a 72-year-old male who presents to the emergency department for abdominal pain. The patient is status post c laparoscopic cholecystectomy that was performed on February 20, [address] Kenny Sam. The patient was doing well, eating at home without difficulty, until earlier today when he developed abdominal pain. He did note mild constipation after the surgery, took Dulcolax on Friday with one small hard bowel movement. He then had a larger, less looser bowel movement earlier today without any diarrhea. However, at 3 PM today he developed generalized abdominal pain, chills, and sweats. He notes subjective fever. He notes several episodes of nausea and vomiting after the pain started at 3 PM. He denies any previous abdominal surgeries, however, was told he has bilateral inguinal hernias by his surgeon. The patient's primary physician is Dr. Curtis. He denies any chest pain, however, does note epigastric pain associated with a lower abdominal pain. He does note mild shortness of breath but has a history of COPD. He does have a history of bypass and previous stent placement. Symptoms are moderate. PFSH Past Medical History Hx Anticoagulant Therapy: Yes (PLAVIX) Arthritis: Yes (SHOULDERS) Asthma: No Blood Disorders: No Heart Rhythm Problems: No Cancer: No Cardiovascular Problems: Yes (CAD,ATHEROSCLEROSIS,CHF,CHEST PAIN, OLD [place],PVD, PULM HYPERTENSION) High Cholesterol: Yes (ON MEDS) Chemotherapy: No Chest Pain: Yes Congestive Heart Failure: No COPD: Yes (RECENTLY) Cerebrovascular Accident: Yes (TIA 10/15/2010) Diabetes: Yes (1990) Diminished Hearing: No Endocrine: Yes Gastrointestinal Disorders: Yes (IBS) GERD: No Genitourinary: No Headaches: No Hepatitis: No Hiatal Hernia: No (BILAT ING HERNIA) Hypertension: Yes Immune Disorder: Yes (FIBROMYALGIA) Implanted Vascular Access Dvce: Yes Musculoskeletal: Yes (OA) Neurologic: Yes (NEUROPATHY; TIA-NO RESIDUAL) Psychiatric: No Reproductive: No Respiratory: Yes (COPD,MULT. LUNG NODULES) Migraines: No Myocardial Infarction: No Radiation Therapy: No Seizures: No Sleep Apnea: Yes Thyroid Disease: Yes Ulcer: No Past Surgical History Abdominal Surgery: No AICD: No Appendectomy: No Arteriovenous Shunt: Yes (STENT ) Cardiac Surgery: Yes (5 VESSEL BIPASS SEPT 2006,STENT 2007) Cholecystectomy: No Coronary Artery Bypass Graft: Yes (5 vessel) Coronary Stent: Yes (2006, 2007) Ear Surgery: No Endocrine Surgery: No Eye Surgery: No Genitourinary Surgery: No Gynecologic Surgery: No Insulin Pump: No Joint Replacement: No Neurologic Surgery: Yes Oral Surgery: Yes (T AND A) Pacemaker: No Thoracic Surgery: Yes Tonsillectomy: Yes Other Surgery: Yes (RIGHT ELBOW ORIF 1984;FEMORAL BYPASS) Social History Alcohol Use: Yes (occ.) Tobacco Use: No Substance Use: No Allergies-Medications (Allergen,Severity, Reaction): Coded Allergies: AAYUSH Inhibitors (Verified Allergy, Unknown, 02/19/18) Reported Meds & Prescriptions Reported Meds & Active Scripts Active [place] (Hydrocodone-Acetaminophen) 5 Mg-325 Mg Tab 1 Tab PO Q6H PRN Colace (Docusate Sodium) 100 Mg Capsule 100 Mg PO BID 10 Days Reported Viagra (Sildenafil Citrate) 100 Mg Tab 100 Mg PO DAILY PRN Timolol Opth Drops 0.5 % Soln 1 Drop EACH EYE DAILY Simvastatin 40 Mg Tab 40 Mg PO HS B-12 Compliance Inj (Cyanocobalamin) 1,000 Mcg/Ml Kit 1,000 Mcg IM Q30D Clopidogrel (Clopidogrel Bisulfate) 75 Mg Tab 75 Mg PO DAILY Levemir Inj (Insulin Detemir) 1,000 unit/ 10 ML Vial 32 Units SQ HS Do not mix with any other Insulin. Amlodipine (Amlodipine Besylate) 10 Mg Tab 10 Mg PO DAILY Glimepiride 4 Mg Tab 4 Mg PO BIDAC Metformin ER (Metformin HCl) 500 Mg Thelma 500 Mg PO DAILY With evening meal MAY RESUME 02/02/18 Metformin ER (Metformin HCl) 1,000 Mg Thelma 1,000 Mg PO DAILY Levothyroxine (Levothyroxine Sodium) 50 Mcg Tab 50 Mcg PO DAILY Review of Systems Except as stated in HPI: all other systems reviewed are Neg General / Constitutional: Positive: Fever, Chills Cardiovascular: No: Chest Pain or Discomfort Respiratory: Positive: Shortness of Breath, No: Cough Gastrointestinal: Positive: Nausea, Vomiting, Abdominal Pain, No: Diarrhea Genitourinary: No: Dysuria Physical Exam Narrative GENERAL: Awake, alert, pleasant 72-year-old male who appears his stated age and appears in moderate discomfort. SKIN: Focused skin assessment warm/dry. HEAD: Atraumatic. Normocephalic. EYES: Pupils equal and round. No scleral icterus. No injection or drainage. ENT: No nasal bleeding or discharge. Dry mucous membranes. NECK: Trachea midline. No JVD. CARDIOVASCULAR: Regular rate and rhythm. No murmur appreciated. Well-healed sternal scar. Heart rate in the 80s. RESPIRATORY: No accessory muscle use. Clear to auscultation. Breath sounds equal bilaterally. GASTROINTESTINAL: Abdomen slightly distended, diffusely tender, no guarding rigidity. Steri-Strips over surgical incisions noted. No erythema or drainage noted. MUSCULOSKELETAL: No obvious deformities. No clubbing. No cyanosis. No edema. NEUROLOGICAL: Awake and alert. No obvious cranial nerve deficits. Motor grossly within normal limits. Normal speech. PSYCHIATRIC: Appropriate mood and affect; insight and judgment normal. Data Data Last Documented VS Vital Signs Date Time Temp Pulse Resp B/P (MAP) Pulse Ox O2 Delivery O2 Flow Rate FiO2 02/24/18 02:17 02/23/18 20:21 97.3 88 21 91 Nasal Cannula 2.00 Orders Orders Complete Blood Count With Diff (02/23/18 19:27) Comprehensive Metabolic Panel (02/23/18 19:27) Lipase (02/23/18 19:27) Prothrombin Time / Inr (Pt) (02/23/18 19:27) Act Partial Throm Time (Ptt) (02/23/18 19:27) Urinalysis - C+S If Indicated (02/23/18 19:27) Electrocardiogram (02/23/18 ) Iv Access Insert/Monitor (02/23/18 20:15) Ecg Monitoring (02/23/18 20:15) Oximetry (02/23/18 20:15) Morphine Inj (Morphine Inj) (02/23/18 20:15) Ondansetron Inj (Zofran Inj) (02/23/18 20:15) Sodium Chlor 0.9% 1000 Ml Inj (Ns 1000 M (02/23/18 20:15) Sodium Chloride 0.9% Flush (Ns Flush) (02/23/18 20:15) Chest, Single Ap (02/23/18 20:15) Ct Abd/Pel W Iv Contrast(Rout) (02/23/18 ) Oral Contrast - Adult (02/23/18 20:25) Diatrizoate Liq ( Gastroview Liq) (02/23/18 20:34) Ckmb (Isoenzyme) Profile (02/23/18 20:30) Troponin I (02/23/18 20:30) Iodixanol 320 Inj (Rad Ct) (Visipaque 32 (02/23/18 21:53) Sodium Chlorid 0.9% 500 Ml Inj (Ns 500 M (02/23/18 22:45) Insulin Aspart Inj (Novolog Inj) (02/23/18 22:45) Morphine Inj (Morphine Inj) (02/23/18 22:45) Insulin Human Regular Inj (Novolin R Inj (02/24/18 00:00) Sodium Chlorid 0.9% 500 Ml Inj (Ns 500 M (02/24/18 00:15) Insulin Detemir Inj (Levemir Inj) (02/24/18 00:15) Morphine Inj (Morphine Inj) (02/24/18 01:00) Ed Discharge Order (02/24/18 01:44) Ondansetron Odt (Zofran Odt) (02/24/18 02:00) Acetamin-Hydrocod 325-5 Mg ([place] 5-325 (02/24/18 02:00) Ondansetron Odt (Zofran Odt) (02/24/18 01:55) Labs Laboratory Tests Test 02/23/18 20:30 White Blood Count 11.1 TH/MM3 Red Blood Count 5.09 MIL/MM3 Hemoglobin 13.8 GM/DL Hematocrit 41.3 % Mean Corpuscular Volume 81.1 FL Mean Corpuscular Hemoglobin 27.1 PG Mean Corpuscular Hemoglobin Concent 33.4 % Red Cell Distribution Width 16.3 % Platelet Count 188 TH/MM3 Mean Platelet Volume 9.3 FL Neutrophils (%) (Auto) 93.9 % Lymphocytes (%) (Auto) 3.1 % Monocytes (%) (Auto) 2.7 % Eosinophils (%) (Auto) 0.1 % Basophils (%) (Auto) 0.2 % Neutrophils # (Auto) 10.4 TH/MM3 Lymphocytes # (Auto) 0.3 TH/MM3 Monocytes # (Auto) 0.3 TH/MM3 Eosinophils # (Auto) 0.0 TH/MM3 Basophils # (Auto) 0.0 TH/MM3 CBC Comment DIFF FINAL Differential Comment Prothrombin Time 10.9 SEC Prothromb Time International Ratio 1.1 RATIO Activated Partial Thromboplast Time 24.1 SEC Blood Urea Nitrogen 21 MG/DL Creatinine 1.81 MG/DL Random Glucose 384 MG/DL Total Protein 8.6 GM/DL Albumin 4.1 GM/DL Calcium Level 9.2 MG/DL Alkaline Phosphatase 82 U/L Aspartate Amino Transf (AST/SGOT) 34 U/L Alanine Aminotransferase (ALT/SGPT) 27 U/L Total Bilirubin 2.3 MG/DL Sodium Level 135 MEQ/L Potassium Level 4.9 MEQ/L Chloride Level 95 MEQ/L Carbon Dioxide Level 25.4 MEQ/L Anion Gap 15 MEQ/L Estimat Glomerular Filtration Rate 37 ML/MIN Total Creatine Kinase 29 U/L Troponin I LESS THAN 0.02 NG/ML Lipase 87 U/L MDM Medical Decision Making Medical Screen Exam Complete: Yes Emergency Medical Condition: Yes Medical Record Reviewed: Yes Interpretation(s) EKG reveals sinus rhythm with sinus arrhythmia. Right bundle branch block with left anterior fascicular block. No significant changes when compared to EKG performed on January 20, 2018. Differential Diagnosis Differential diagnosis includes postoperative complication, postoperative seroma , hematoma, abscess, retained biliary stone, pancreatitis, ileus, partial small bowel obstruction, dehydration, electrolyte normality, inferior AZ, lower lobe pneumonia. Narrative Course IV was established, labs are drawn and sent, and the patient was placed on cardiac telemetry monitoring and continuous pulse oximetry monitoring. EKG was ordered and interpreted. The patient was administered morphine, Zofran, and IV fluids. I discussed the patient with the on-call surgeon for Dr. Kenny Sam, Dr. Oglesby, and after discussion was agreed the patient would receive a CT of the abdomen and pelvis with IV and oral contrast. Laboratory evaluation reveals minimally elevated white count 11.1. Anion gap is normal. LFTs are normal. Lipase unremarkable. CT the abdomen and pelvis reveals a small amount of free fluid around the liver, most likely postoperative. No acute obstruction noted. No visible abscess or large hematoma. I discussed the patient with Dr. Long who states the patient can follow-up on an outpatient basis with his general surgeon, Dr. Kenny Sam. The patient's blood sugar was elevated, therefore, the patient was administered insulin subcutaneously, IV fluids, and another dose of morphine. He was then given a p.o. challenge with ice water. The patient tolerated water without difficulty. Repeat blood sugar revealed glucose of 415. Patient was administered his night dose of Levemir and 6 units of insulin intravenously. He was monitored for another hour. Repeat blood sugar was 265. The patient will be discharged home with Colace and [place]. He will be provided a copy of his CT results and lab results at discharge. He is a volleys to follow-up with his surgeon, Dr. Kenny Sam in the morning. Return if symptoms worsen or progress. Diagnosis Primary Impression: Abdominal pain Qualified Codes: R10.84 - Generalized abdominal pain Patient Instructions: General Instructions Additional Instructions: Medications as directed. Clear liquid diet and advance as tolerated. Please provide the patient a copy of his CT results and lab results at discharge. Call Dr. Kenny Sam's office in the morning. Return if symptoms worsen or progress. Med/Other Pt SpecificInfo: Prescription(s) given Scripts Hydrocodone-Acetaminophen ([place]) 5 Mg-325 Mg Tab 1 TAB PO Q6H Y for PAIN, #12 TAB 0 Refills Prov: Jay Mckeon MD 02/24/18 Docusate Sodium (Colace) 100 Mg Capsule 100 MG PO BID for Prevent Constipation for 10 Days, #20 CAP 0 Refills Prov: Jay Mckeon MD 02/24/18 Disposition: 01 DISCHARGE HOME Condition: Stable Jay Mckeon MD Feb 23, 2018 20:28
[2018-02-23] MEDS ORDERED: DIATRIZOATE MEGLUM/DIATRIZOATE SOD 9 ML CUP ONE (20:34)
[2018-02-23 20:55] LABS: AUTOMATED NEUTROPHIL # 10.4 TH/MM3 (1.8-7.7); BASOPHIL % 0.2 % (0.0-2.0); EOSINOPHIL % 0.1 % (0.0-4.0); HEMATOCRIT 41.3 % (39.0-51.0); HEMOGLOBIN 13.8 GM/DL (13.0-17.0); LYMPH % 3.1 % (9.0-44.0); LYMPHOCYTE # 0.3 TH/MM3 (1.0-4.8); MEAN CELL VOLUME 81.1 FL (80.0-100.0); MEAN CORPUSCULAR HEMOGLOBIN 27.1 PG (27.0-34.0); MEAN CORPUSCULAR HGB CONC 33.4 % (32.0-36.0); MEAN PLATELET VOLUME 9.3 FL (7.0-11.0); MONO % 2.7 % (0.0-8.0); MONOCYTE # 0.3 TH/MM3 (0-0.9); NEUT % 93.9 % (16.0-70.0); PLATELET COUNT 188 TH/MM3 (150-450); RED BLOOD COUNT 5.09 MIL/MM3 (4.50-5.90); RED CELL DISTRIBUTION WIDTH 16.3 % (11.6-17.2); WHITE BLOOD COUNT 11.1 TH/MM3 (4.0-11.0)
[2018-02-23 21:05] LABS: INTERNATIONAL NORMALIZED RATIO 1.1 RATIO; PROTHROMBIN TIME - PATIENT 10.9 SEC (9.8-11.6)
[2018-02-23 21:31] LABS: ALBUMIN 4.1 GM/DL (3.4-5.0); AST (GOT) 34 U/L (15-37); BICARBONATE 25.4 MEQ/L (21.0-32.0); BLOOD UREA NITROGEN 21 MG/DL (7-18); CALCIUM 9.2 MG/DL (8.5-10.1); CHLORIDE 95 MEQ/L (98-107); CREATININE 1.81 MG/DL (0.60-1.30); GLOMERULAR FILTRATION RATE 37 ML/MIN (>89); GLUCOSE,RANDOM 384 MG/DL (74-106); SODIUM (NA) 135 MEQ/L (136-145)
[2018-02-23 21:36] LABS: ALKALINE PHOSPHATASE 82 U/L (45-117); ALT (GPT) 27 U/L (12-78); TOTAL BILIRUBIN ADULT 2.3 MG/DL (0.2-1.0); TOTAL PROTEIN 8.6 GM/DL (6.4-8.2); TROPONIN I LESS THAN 0.02 NG/ML (0.02-0.05)
[2018-02-23] MEDS ORDERED: IODIXANOL 320 MG/ML 10 ML VIAL (for Rad CT) IVCONTRAST ONE (21:53)
--- NOTE | 2018-02-23 21:53 | RADRPT ---
EXAM DATE/TIME: 02/23/2018 20:43 [facility] COMPARISON: CHEST SINGLE AP, January 28, 2018, 21:07. INDICATIONS : Vomiting 1 week after cholecystectomy with stomach chest pain. MEDICAL HISTORY : Cardiovascular disease. Hypertension Inflammatory bowel disease. SURGICAL HISTORY : CABG. Cholecystectomy. ENCOUNTER: Subsequent ACUITY: 1 day PAIN SCORE: 4/10 LOCATION: Bilateral chest FINDINGS: Postoperative CABG. Minimal basilar atelectasis. No effusion. No pneumothorax. Heart size upper limit s normal. CONCLUSION: 1. Minimal basilar atelectasis. Postoperative CABG. Daniel Romero MD on February 23, 2018 at 21:48 Board Certified Radiologist. This report was verified electronically.
--- NOTE | 2018-02-23 22:26 | RADRPT ---
EXAM DATE/TIME: 02/23/2018 22:03 [facility] COMPARISON: No previous studies available for comparison. INDICATIONS : Abdomen pain. IV CONTRAST: 50 cc Visipaque (iodixanol) IV ORAL CONTRAST: Prescribed oral contrast ingested. RADIATION DOSE: 13.52 CTDIvol (mGy) MEDICAL HISTORY : Cardiovascular disease. Hypertension. Inflammatory bowel disease. SURGICAL HISTORY : None. ENCOUNTER: Initial ACUITY: 1 day PAIN SCALE: 5/10 LOCATION: Bilateral abdomen TECHNIQUE: Volumetric scanning of the abdomen and pelvis was performed. Using automated exposure control and ad justment of the mA and/or kV according to patient size, radiation dose was kept as low as reasonably achievable to obtain optimal diagnostic quality images. DICOM format image data is available electro nically for review and comparison. FINDINGS: There is basilar pulmonary fibrosis. Moderate to severe coronary artery calcifications. There is mild ascites around the liver. The spleen, adrenals, kidneys and pancreas unremarkable. There is a partial loop of distal left colon extending into the left inguinal canal. Colonic divertic ulosis present without diverticulitis. There are mild changes of constipation. No bowel obstruction. Free air or free fluid. No adenopathy. CONCLUSION: 1. Left inguinal hernia containing a partial loop of the distal left colon without evidence for obstr uction. 2. Colonic diverticulosis without evidence for diverticulitis. Mild constipation. 3. Mild basilar pulmonary fibrotic changes. 4. Small amount of ascites noted around the liver. 5. Moderate to severe coronary calcifications. Daniel Romero MD on February 23, 2018 at 22:16 Board Certified Radiologist. This report was verified electronically.
[2018-02-23] MEDS ORDERED: MORPHINE SULFATE 2 MG/ML INJ IV PUSH ONE (22:45)
[2018-02-23] MEDS ORDERED: SODIUM CHLORID 0.9% 500 ML INJ 500 ML IV ONE (22:45)
[2018-02-23] MEDS ORDERED: INSULIN ASPART 1,000 UNITS/10 ML VIAL SQ ONE (22:45)
[2018-02-24] MEDS ORDERED: INSULIN HUMAN REGULAR 1,000 UNITS/10 ML VIAL IV PUSH ONE
[2018-02-24] MEDS ORDERED: INSULIN DETEMIR 100 UNITS/ML VIAL SQ SCH (00:15)
[2018-02-24] MEDS ORDERED: SODIUM CHLORID 0.9% 500 ML INJ 500 ML IV ONE (00:15)
[2018-02-24] MEDS ORDERED: MORPHINE SULFATE 4 MG/ML INJ IV PUSH ONE (01:00)
[2018-02-24] MEDS ORDERED: COLA100C5 PO (01:43)
[2018-02-24] MEDS ORDERED: NORC5TAB PO (01:43)
[2018-02-24] MEDS ORDERED: ONDANSETRON ODT 4 MG TAB ONE (01:55)
[2018-02-24] MEDS ORDERED: ONDANSETRON ODT 4 MG TAB PO ONE (02:00)
[2018-02-24] MEDS ORDERED: ACETAMINOPHEN/HYDROcodone 325 MG/5 MG TAB PO ONE (02:00)
--- NOTE | 2018-02-24 15:43 | EKG ---
Date Performed: 02/23/2018 Time Performed: 19:50:34 PTAGE: 72 years EKG: Sinus rhythm WITH MARKED SINUS ARRHYTHMIA POSSIBLE LEFT ATRIAL ENLARGEMENT RIGHT BUNDLE BRANCH BLOCK LEFT ANTERIO R FASCICULAR BLOCK POSSIBLE SEPTAL MYOCARDIAL INFARCTION ABNORMAL ECG PREVIOUS TRACING 01/28/18 Rate has increased since prior tracing; otherwise, largely unchanged . DOCTOR: Tremaine Plummer Interpretating Date/Time 02/24/2018 15:40:25
== END 2018-02-24 02:42 | disposition home or self-care (01) ==
LOC: NED 19:19 → NEPC 02-24 02:42
DX: R10.84 Generalized abdominal pain (principal); R11.2 Nausea with vomiting, unspecified; E07.9 Disorder of thyroid, unspecified; E11.65 Type 2 diabetes mellitus with hyperglycemia; E78.00 Pure hypercholesterolemia, unspecified; I10 Essential (primary) hypertension; J44.9 Chronic obstructive pulmonary disease, unspecified; R94.31 Abnormal electrocardiogram [ECG] [EKG]; Z79.4 Long term (current) use of insulin
CPT/HCPCS: 71045; 74177; 80053; 82550; 83690; 84484; 85025; 85610; 85730; 93005; 96361; 96372; 96374; 96375; 96376; 99285; J1815; J2270; J2405; J7030; J7040; Q9963; Q9967

== ENCOUNTER → 2018-05-14 | Outpatient (CLI) | payer MEDICARE ==
[~2018-05-14] MED LIST changes: -ASPI-183 PO; +COLA100C5 PO; +NORC5TAB PO
== END ==
LOC: HRSP 13:01
PROVIDERS: ATTEND Internal Medicine Pulmonary Disease
DX: J84.10 Pulmonary fibrosis, unspecified (principal)
CPT/HCPCS: 94060; 94618; 94726; 94729